=== PATIENT | female | born 1985 | race Caucasian/White ===

== ENCOUNTER → 2018-03-27 08:08 | Outpatient (CLI) | payer OTHER, MEDICAID, SELFPAY | PROVIDERS: PCP Emergency Medicine; Visit Provider Orthopaedic Surgery | DX: M65.4 Radial styloid tenosynovitis [de Quervain] (principal); Z01.818 Encounter for other preprocedural examination ==

== ENCOUNTER 2018-07-26 07:49 | Outpatient (CLI) | payer OTHER, MEDICAID, SELFPAY ==
[2018-07-26 08:37] LABS: Hemoglobin A1C 5.6 % (4.5-6.2)
[2018-07-26 10:33] LABS: FREE T4 0.98 ng/dL (0.76-1.46)
[2018-07-26 17:56] LABS: T3, Total 140 ng/dl (97-169)
== END 2018-07-26 08:09 ==
PROVIDERS: PCP Emergency Medicine; Visit Provider Emergency Medicine
DX: E03.9 Hypothyroidism, unspecified (principal); R63.5 Abnormal weight gain; E66.9 Obesity, unspecified
CPT/HCPCS: 36415; 82533; 83036; 84439; 84443; 84480

== ENCOUNTER 2019-03-07 18:07 | Outpatient (REF) | payer OTHER, MEDICAID, SELFPAY | END 2019-03-07 18:27 | LOC: LBN 18:07 | PROVIDERS: PCP Emergency Medicine; Visit Provider Emergency Medicine | DX: J02.9 Acute pharyngitis, unspecified (principal) | CPT/HCPCS: 87070 ==

== ENCOUNTER 2019-05-18 15:02 | Outpatient (CLI) | payer OTHER, MEDICAID, SELFPAY ==
[2019-05-18 15:39] LABS: Abs Immature Grans 0.05 k/cumm (0.0-0.09); Absolute Basophil Count 0.03 k/cumm (0.0-0.2); Absolute Eosinophil Count 0.17 k/cumm (0.0-0.7); Absolute Lymphocyte Count 2.22 k/cumm (1.2-3.4); Absolute Monocyte Count 0.56 k/cumm (0.11-0.7); Absolute Neutrophil Count 6.57 k/cumm (1.2-6.7); Basophils % 0.3; Eosinophils % 1.8; HGB 14.7 g/dL (12.0-15.5); Immature Grans % 0.5; Lymphocytes % 23.1; Mean Corp. HGB Concentration 33.4 g/dL (32.0-36.0); Mean Corpuscular Hemoglobin 29.4 pg (27.0-33.0); Mean Platelet Volume 10.9 fL (8.0-11.0); Monocytes % 5.8; Neutrophils % 68.5; Platelet Count 260 x1000/uL (130-400); RBC Distribution Width 13.3 % (11.7-14.6)
[2019-05-18 16:17] LABS: ALT 22 U/L (14-59); AST 18 U/L (15-37); Albumin 3.7 g/dL (3.4-5.0); Alkaline Phosphatase 84 U/L (46-116); Anion Gap 12.1 mmol/L (3-11); BUN 17 mg/dL (7-18); Bilirubin, Total 0.2 mg/dL (0.2-1.0); C-Reactive Protein 0.36 mg/dL (0.0-0.3); CO2 22.9 mmol/L (21.0-32.0); CREATININE 0.87 mg/dL (0.55-1.02); Calcium 8.8 mg/dL (8.5-10.1); Chloride 104 mmol/L (98-107); Glucose 106 mg/dL (70-100); Potassium 4.2 mmol/L (3.5-5.1); Sodium 139 mmol/L (136-145); TSH 0.84 uIU/mL (0.36-3.74); Total Protein 7.4 g/dL (6.4-8.2)
[2019-05-18 16:37] LABS: ESR 10 mm/hr (0-20)
[2019-05-18 16:55] LABS: Vitamin B12 592 pg/mL (193-986)
[2019-05-21 10:16] LABS: Lyme Ab w Rflx to Lyme Confirm Negative
== END 2019-05-18 15:22 ==
PROVIDERS: PCP Emergency Medicine; Visit Provider Emergency Medicine
DX: R51 Headache (principal); E03.9 Hypothyroidism, unspecified; M25.50 Pain in unspecified joint
CPT/HCPCS: 36415; 80053; 85652; 82607; 84443; 85025; 86140; 86618

== ENCOUNTER 2019-05-22 13:12 | Emergency (ER) | payer OTHER, MEDICAID, SELFPAY ==
[2019-05-22 13:21] VITALS: BP 134/81; PULSE 70; RESP 16; TEMP 37; O2SAT 97
[2019-05-22 13:40] VITALS: RESP 17
[2019-05-22 13:45] LABS: Bilirubin Negative (Negative); Blood Negative (Negative); Clarity Clear (Clear); Glucose Negative (Negative); Ketones Negative (Negative); Leukocyte Esterase Trace (Negative); Nitrite Negative (Negative); Urobilinogen 0.2 EU/dL (Up TO 0.2); pH 6.5 (5-8)
[2019-05-22 13:57] LABS: Bacteria Moderate HPF (Negative); Crystals Negative HPF (Negative); Mucus Trace (Negative); RBC Negative (0-2); WBC 0-2 HPF (0-5)
[2019-05-22 13:58] LABS: C & S Indicated? No/Sq. Contamination; Epithelial Cells Many HPF (Negative)
--- NOTE | 2019-05-22 14:08 | ED.GENADUL_ITS ---
Discharge Plan Disposition Patient Disposition: HOME Condition: Improving Discharge Details Chief Complaint: GenMedical Clinical Impression: Headache Primary Care Provider: Billy Watkins ED Provider: Elio Larsen Home Meds and New Rx's Prescriptions: No Action lorazepam 1 mg tablet 1 mg PO QHS PRN (Reason: sleep) Qty: 10 RF: 0 multivitamin [Daily Multi-Vitamin] tablet 1 tab PO DAILY RF: 0 ParaGard T 380A 1 EACH intrauterine device 1 ea Intrauterine ONCE Qty: 1 RF: 0 baclofen 5 mg tablet 5 mg PO TID PRN (Reason: back pain) Qty: 90 RF: 1 acetaminophen [Mapap Extra Strength] 500 MG tablet 1,000 mg PO Q6H PRN PRNRF: 0 Discharge Instructions Instructions: General Headache (ED) Additional Instructions: It is very important that you follow-up with your primary care provider for continued reassessment of your symptoms. You may continue to take ooir-zzs-ajdkmsk ibuprofen as needed for any further headaches just do not take excessively as this will cause rebound headache symptoms. Feel free to return to the emergency department for any new or significant worsening of symptoms otherwise get plenty of rest and stay well-hydrated. Referrals: Billy Watkins, [Primary Care Provider] - 1 week (As needed for reassessment) Discharge Data Discharge Date/Time-TO BE ENTERED AT DEPARTURE: 05/22/19 17:23 Medical Decision Making <JEREMY Wagoner - Last Filed: 05/24/19 16:22> Is a very pleasant 34-year-old woman who presents for episode of dizziness, darkened vision, nausea and confusion which occurred while she was walking in the hallway of the hospital today prior to arrival. Patient reports the episode was very brief and has fully resolved. Patient reports mild baseline fatigue. Patient has had multiple similar episodes over the last month or 2 for which she has followed up with her primary care doctor. Primary care doctor has evaluated patient's lab work which has been unremarkable. They did prescribe anxiety and depression medications which possibly was contributory to her symptoms as she is 18 months however she declined taking the medications when followed up with another primary care doctor in the office who recommended further evaluation prior to beginning medications. Patient does have baseline anxiety. Patient reports she did not pass out today. No recent syncopal episodes reported. Patient does report palpitations during her episode although she is feeling quite anxious during her episode. Patient denies any palpitations, chest pain or difficulty breathing at this time. Patient does plan to pursue a neurologic evaluation with her primary care doctor as the next plan of follow- up. We will recheck patient's baseline labs, , urine testing. Patient's vital signs stable. Neurologic exam intact. Patient's initial EKG shows sinus rhythm with a heart rate of 69. No ischemic changes or ST segment changes noted. Reviewed with my attending Iggy Nugent Patient's labs are reviewed and show no significant abnormality. Patient's testing is negative. Patient's urinalysis shows trace leukocyte est erase with epithelial cells likely contaminated. Patient has no obvious urinary tract symptoms at this time. Patient will be provided IV fluid as well as Toradol. Patient signed out pending recheck after fluids/Toradol. <Elio Larsen NP - Last Filed: 05/28/19 09:37> Patient signed out by Seble LUNA, to me pending reassessment after Toradol and fluids. Patient was reassessed and states improvement of symptoms and that she is feeling well enough to go home. Did discuss with patient possibility of further neurological testing which she stated she is scheduled for an MRI tomorrow. Patient has close follow-up with primary care provider for further investigation of her symptoms. Return precautions were discussed. After discussion of diagnosis and plan of care patient has no further needs, questions, or concerns and states clear understanding to return to the emergency department for any worsening symptoms. HPI <JEREMY Wagoner - Last Filed: 05/24/19 16:22> General Date/Time Provider Initiated Documentation: 05/22/19 13:39 . 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 Patient reports she feels significantly improved after the episode. Patient reports she mild fatigue. Patient has a constellation of symptoms recently which she is been working with her primary care doctor for specifically fatigue, palpitations, paresthesias and tingling, right facial discomfort. Patient has had thyroid testing as well as outpatient lab work which is been unremarkable for any abnormality. Has had Lyme testing recently for fatigue. Patient is 18 months post . Patient does report occasional shortness of breath and fatigue. Patient reports multiple episodes of dizziness during which she does become nauseous. Patient reports she was seen by primary care doctor for similar co mplaints and was provided antidepressant and sleep aid however she is not taking either of these medications while pending evaluation. After patient became dizzy during where she called her PCP recommended emergency room evaluation. Patient is a significant history of anxiety and is unsure if the symptoms are related to anxiey Related Data Home Medications Medication Instructions Recorded Confirmed acetaminophen [Mapap Extra 1,000 mg PO Q6H PRN PRN tab 11/25/17 05/09/19 Strength] copper [Paragard T 380-A] 1 ea INTRAUTERINE ONCE #1 implant 01/11/18 05/22/19 multivitamin 1 tab PO DAILY 01/26/19 05/22/19 baclofen 5 mg tablet 5 mg PO TID PRN #90 tab 03/28/19 05/22/19 lorazepam 1 mg tablet 1 mg PO QHS PRN #10 tab 05/09/19 05/22/19 Previous Rx's Medication Instructions Recorded acetaminophen [Mapap Extra 1,000 mg PO Q6H PRN PRN tab 11/25/17 Strength] copper [Paragard T 380-A] 1 ea INTRAUTERINE ONCE #1 implant 01/11/18 baclofen 5 mg tablet 5 mg PO TID PRN #90 tab 03/28/19 lorazepam 1 mg tablet 1 mg PO QHS PRN #10 tab 05/09/19 Allergies Allergy/AdvReac Type Severity Reaction Status Date / Time Penicillins Allergy Severe Verified 05/18/19 14:28 gluten Allergy Intermediate Hives, Verified 05/18/19 14:28 Bloated latex Allergy Intermediate SKIN RASH Verified 05/18/19 14:28 prednisone AdvReac Intermediate palpitation Verified 05/18/19 14:28 s Sulfa (Sulfonamide AdvReac Intermediate SWOLLEN Verified 05/18/19 14:28 Antibiotics) JOINTS sertraline AdvReac Mild GETS HYPER Verified 05/18/19 14:28 dairy Allergy Intermediate Hives, GI Uncoded 05/09/19 15:19 General Stated Complaint: GenMedical ARANZA: 3 Review of Systems <JEREMY Wagoner - Last Filed: 05/24/19 16:22> Review of Systems ROS Unobtainable: All systems reviewed & are unremarkable except as noted in HPI and below Constitutional Constitutional: Reports fatigue, Denies fever(s) and Reports headache(s) ENT Ears, Nose, Mouth, and Throat: Reports dizziness, Reports dry mouth, Reports facial pain, Reports headache(s), Denies tinnitus, Denies sinus pain, Denies sinus pressure, Denies sore throat and Denies throat swelling Cardiovascular Cardiovascular: Denies chest pain with activity, Reports diaphoresis, Denies dyspnea and Reports dyspnea on exertion Respiratory Respiratory: Denies dyspnea and Reports dyspnea on exertion Gastrointestinal Gastrointestinal: Denies diarrhea, Reports nausea and Denies vomiting Neurologic Neurologic: Reports confusion, Reports dizziness and Reports headache(s) Psychiatric Psychiatric: Reports confusion Endocrine Endocrine: Reports fatigue Allergic/Immunologic Allergic/Immunologic: Denies throat swelling PFSH <JEREMY Wagoner - Last Filed: 05/24/19 16:22> Medical History (Updated 11/02/18 @ 09:46 by Michelle Joseph NP) IUD surveillance (Acute) Social History Smoking/Tobacco Use Status: Former Tobacco Use Drug use: Never History History 2 Para 1 Hx # Term Pregnancies Multiple births Hx # Pregnancies Ectopic pregnancies AB induced Hx Number of Living Children AB spontaneous Exam <JEREMY Wagoner - Last Filed: 05/24/19 16:22> Narrative Exam Narrative: CONST: Healthy appearing patient, in no acute distress. Dry mucous membranes. Alert and alert. HENMT: Head nomocephalic, normal to inspection. Atraumatic. Hearing grossly normal. EYES: General normal appearance. Alignment normal. Eyelids normal. Conjunctiva normal. NECK: Normal visual inspection. FROM. Trachea midline. No Midline tenderness. CHEST: Normal insepection of the chest. RESP: Normal respiratory effort. Speaking full sentences. No cough. No audible wheezing. No retractions. CARDIO: No JVD. No murmurs or rubs. Abdomen; abdomen is soft, nontender, bowel sounds present all 4 quadrants. No peritoneal signs, rebound or guarding. MUSCULOSKELETAL: Normal Gait. FROM of all extremities. SKIN: Normal. Dry. No rashes. NEURO: Alert and awake. Speech clear. Alert and oriented x 3. Speech is clear. Cranial nerves intact as tested III - XI. Normal Elarmz-so-ylfp test. No pronator drift. Normal heel-villatoro test. No Nystagmus. Gait normal. Strength intact in all extremities. Sensation intact in all extremities. PSYCH: Normal affect. Cooperative. Course <JEREMY Wagoner - Last Filed: 05/24/19 16:22> Vital Signs Vital signs: Vital Signs Temperature 37.0 C 05/22/19 13:21 Pulse 70 05/22/19 13:21 Respiratory Rate 16 05/22/19 13:21 Blood Pressure 134/81 05/22/19 13:21 Pulse Oximetry 97 05/22/19 13:21 Temperature 37.0 C 05/22/19 13:21 Temperature Source Temporal Artery Scan 05/22/19 13:21 Pulse 70 05/22/19 13:21 Respiratory Rate 17 05/22/19 13:40 Respiratory Effort Non-Labored 05/22/19 13:40 Respiratory Depth Normal 05/22/19 13:40 Respiratory Pattern Normal 05/22/19 13:40 Blood Pressure 134/81 05/22/19 13:21 Blood Pressure Position Supine 05/22/19 13:21 Pulse Oximetry 97 05/22/19 13:21 Oxygen Delivery Method Room Air 05/22/19 13:21 Oxygen Flow Rate 0 05/22/19 13:21 Pain Level 0 05/22/19 13:21 Lab/Test Results Lab/Test Results: Laboratory Tests Range/Units 05/22/19 13:34 Urine Color (Yellow) Yellow Urine Clarity (Clear) Clear Urine pH (5-8) 6.5 Ur Specific [place] (1.005-1.025) 1.010 Urine Protein (Negative) mg/dL Trace H Urine Ketones (Negative) mg/dL Negative Urine Blood (Negative) Negative Urine Nitrite (Negative) Negative Urine Bilirubin (Negative) Negative Urine Urobilinogen (Up TO 0.2) EU/dL 0.2 Ur Leukocyte Esterase (Negative) Trace H Urine RBC (0-2) Negative Urine WBC (0-5) HPF 0-2 Ur Epithelial Cells (Negative) HPF Many Urine Crystals (Negative) HPF Negative Urine Bacteria (Negative) HPF Moderate Urine Mucus (Negative) Trace Ur Culture Indicated? No/sq. contamination Urine Glucose (Negative) mg/dL Negative POC- Test(urine) Negative Sign Out <JEREMY Wagoner - Last Filed: 05/24/19 16:22> Sign Out Data: Sign Out Comment: Signed out pending IV fluid and Toradol administration and reevaluation for improvement. Disposition plan currently follow-up with PCP as outpatient for continued evaluation for her complaints Last updated by Fernanda Marques PA at 05/22/19 16:22
[2019-05-22 14:13] VITALS: BP 124/84; BP 128/73; BP 138/74; PULSE 72; PULSE 75; PULSE 77
[2019-05-22] MEDS: Normal Saline 1,000 ML 1000 ML IV (14:32)
[2019-05-22 14:39] LABS: Abs Immature Grans 0.03 k/cumm (0.0-0.09); Absolute Basophil Count 0.04 k/cumm (0.0-0.2); Absolute Eosinophil Count 0.07 k/cumm (0.0-0.7); Absolute Lymphocyte Count 1.81 k/cumm (1.2-3.4); Absolute Monocyte Count 0.65 k/cumm (0.11-0.7); Absolute Neutrophil Count 6.26 k/cumm (1.2-6.7); Basophils % 0.5; Eosinophils % 0.8; HCT 44.3 % (36.0-46.0); HGB 14.8 g/dL (12.0-15.5); Immature Grans % 0.3; Lymphocytes % 20.4; Mean Corp. HGB Concentration 33.4 g/dL (32.0-36.0); Mean Corpuscular Hemoglobin 29.4 pg (27.0-33.0); Mean Corpuscular Volume 87.9 fL (80-95); Mean Platelet Volume 11.2 fL (8.0-11.0); Monocytes % 7.3; Neutrophils % 70.7; Platelet Count 240 x1000/uL (130-400); RBC 5.04 m/cumm (4.00-5.20); RBC Distribution Width 13.3 % (11.7-14.6); White Blood Cell Count 8.86 k/cumm (4.4-10.8)
[2019-05-22 15:01] LABS: ALT 18 U/L (14-59); AST 22 U/L (15-37); Albumin 3.8 g/dL (3.4-5.0); Alkaline Phosphatase 79 U/L (46-116); Anion Gap 9.7 mmol/L (3-11); BUN 14 mg/dL (7-18); Bilirubin, Total 0.3 mg/dL (0.2-1.0); CO2 26.3 mmol/L (21.0-32.0); CREATININE 0.88 mg/dL (0.55-1.02); Calcium 8.8 mg/dL (8.5-10.1); Chloride 104 mmol/L (98-107); Glucose 94 mg/dL (70-100); Potassium 4.2 mmol/L (3.5-5.1); Sodium 140 mmol/L (136-145); Total Protein 7.8 g/dL (6.4-8.2)
[2019-05-22] MEDS: Ketorolac 15 MG/ML VIAL IVP (16:21)
== END 2019-05-22 17:23 | disposition home or self-care (01) ==
PROVIDERS: Physician Assistant; Emergency Provider Nurse Practitioner Family; PCP Emergency Medicine
DX: R51 Headache (principal)
CPT/HCPCS: 36416; 80053; 81025; 82962; 93005; 96361; 96374; 99284; 81003; 81015; 84703; 85025; 93010; J1885

== ENCOUNTER 2019-05-23 01:30 | Outpatient (CLI) | payer OTHER, MEDICAID, SELFPAY ==
--- NOTE | 2019-05-23 13:57 | DI.MRI_ITS ---
EXAM: MR BRAIN WO CLINICAL HISTORY: headache and right facial pain R51. TECHNIQUE: Multiplanar multisequence MRI was performed. COMPARISON: No exams were available for comparison FINDINGS: No intracranial hemorrhage, mass or infarct is seen. The ventricles are normal in size. There are no abnormal high signal lesions in the white matter. The orbits, sinuses and mastoid air cells unre markable. There are no areas of restricted diffusion. the vascular flow voids appear intact. IMPRESSION: Negative MRI of the brain.
--- NOTE | 2019-05-23 15:37 | DI.VRAD_ITS ---
PROCEDURE INFORMATION: Exam: MR Head Without Contrast Exam date and time: 05/23/2019 2:33 PM Clinical history: 34 years old, female; Headache not specified; Patient HX: Headache and right facial pain. TECHNIQUE: Imaging protocol: MR of the head without contrast. COMPARISON: No relevant prior studies available. FINDINGS: Brain: Normal. No acute infarct. No hemorrhage. No significant white matter disease. No edema. Ventricles: Normal. No ventriculomegaly. Bones/joints: Unremarkable. Soft tissues: Unremarkable. Sinuses: Normal as visualized. No acute sinusitis. Mastoid air cells: Normal as visualized. No mastoid effusion. Orbits: Unremarkable. IMPRESSION: No acute findings. Dictated and Authenticated by: Ari Jordan MD. Ordering:VINAY Cervantes MD
== END 2019-05-23 01:50 ==
PROVIDERS: PCP Emergency Medicine; Visit Provider Emergency Medicine
DX: R51 Headache (principal); G50.1 Atypical facial pain
CPT/HCPCS: 70551

== ENCOUNTER 2019-08-29 15:41 | Outpatient (REF) | payer OTHER, MEDICAID, SELFPAY | END 2019-08-29 16:01 | LOC: LBN 15:41 | PROVIDERS: PCP Emergency Medicine; Visit Provider Nurse Practitioner Gerontology | DX: R50.9 Fever, unspecified (principal) | CPT/HCPCS: 87449 ==

== ENCOUNTER 2019-09-17 11:54 | Outpatient (CLI) | payer OTHER, MEDICAID, SELFPAY ==
--- NOTE | 2019-09-17 10:36 | DI.RAD_ITS ---
EXAM: XR TOE RT GREAT INDICATION: R toe pain. COMPARISON: No exams were available for comparison TECHNIQUE: 2D digital imaging was performed. FINDINGS: The sesamoids are not well seen on the lateral view. The articulation of the sesamoids and the head of the 1st metatarsal appear unremarkable. The soft tissues are unremarkable.
== END 2019-09-17 12:14 ==
PROVIDERS: PCP Emergency Medicine; Visit Provider Physician Assistant
DX: M79.674 Pain in right toe(s) (principal)
CPT/HCPCS: 73660

== ENCOUNTER 2019-09-26 01:08 | Outpatient (CLI) | payer OTHER, MEDICAID, SELFPAY ==
--- NOTE | 2019-09-26 10:45 | DI.MRI_ITS ---
EXAM: MR LOWER EXTREMITY RT WO CLINICAL HISTORY: R foot pain M25.80 JOINT DISORDERS. TECHNIQUE: Multiplanar multisequence MRI was performed. COMPARISON: RIGHT GREAT TOE from 01/04/2018 XR TOE RT GREAT from 09/17/2019 FINDINGS: There is high signal within the marrow of the medial sesamoid. The lateral sesamoid shows normal sig nal. There is normal signal in the 1st metatarsal head. The tendons appear intact. There is a smal l amount of surrounding fluid and fluid at the 1st MTP joint. IMPRESSION: High signal and small amount of surrounding fluid at the medial sesamoid.
== END 2019-09-26 01:28 ==
PROVIDERS: PCP Emergency Medicine; Visit Provider Physician Assistant
DX: M79.671 Pain in right foot (principal); M89.8X7 Other specified disorders of bone, ankle and foot
CPT/HCPCS: 73718

== ENCOUNTER 2019-12-10 14:08 | Outpatient (REF) | payer OTHER, MEDICAID, SELFPAY | END 2019-12-10 14:28 | LOC: LBN 14:08 | PROVIDERS: PCP Emergency Medicine; Visit Provider Nurse Practitioner Gerontology | DX: N39.0 Urinary tract infection, site not specified (principal) | CPT/HCPCS: 87086 ==

== ENCOUNTER 2020-02-07 01:44 | Outpatient (CLI) | payer OTHER, MEDICAID, SELFPAY ==
--- NOTE | 2020-02-07 07:45 | DI.MAMMO_ITS ---
EXAM: MG MAMMO DIAGNOSTIC BI CLINICAL HISTORY: MASTYODYNIA, N64.4, BREAST PAIN TECHNIQUE: Mammograms were interpreted according to the usual protocol including computer analysis w Bedloo system, tomosynthesis and C-view imaging. COMPARISON: FINDINGS: The breasts are moderate density with fairly symmetrical distribution of fibroglandular tissue. No d ominant mass or clumped microcalcification is identified in either breast. The current examination i s a baseline examination. IMPRESSION: No specific evidence of malignancy at this time. I would suggest that routine screening examinations of begin at age 40 unless there is breast symptomatology in the interval. BI-RADS Category 1 - Negative Breast Density - Category B - Scattered areas of fibroglandular density
== END 2020-02-07 02:04 ==
PROVIDERS: PCP Emergency Medicine; Visit Provider Advanced Practice Midwife
DX: N64.4 Mastodynia (principal)
CPT/HCPCS: 77062; 77066; G0279

== ENCOUNTER 2020-04-14 07:38 | Outpatient (CLI) | payer OTHER, MEDICAID, SELFPAY ==
--- NOTE | 2020-04-14 14:29 | DI.RAD_ITS ---
EXAM: XR CHEST 2V PA LATERAL CLINICAL HISTORY: cough, SOB, r/o pneumonia, J98.01 ACUTE BRONCHOSPASM TECHNIQUE: 2D digital imaging was performed. COMPARISON: CR CHEST 2 VIEWS PA,LAT from 04/14/2012 FINDINGS: MEDIASTINUM: Normal. HEART: Normal. PULMONARY VASCULATURE: Normal. LUNGS: Clear. PLEURAL SPACE: No pleural effusion or pneumothorax. BONE:Within normal limits for the patient's age. OTHER FINDINGS:Normal. IMPRESSION: No acute pulmonary findings. DATA REPOSITORY: RADIATION DOSE DELIVERED:
== END 2020-04-14 07:58 ==
PROVIDERS: PCP Emergency Medicine; Visit Provider Physician Assistant
DX: R05 Cough (principal); J98.01 Acute bronchospasm; R06.02 Shortness of breath
CPT/HCPCS: 71046

== ENCOUNTER 2020-04-14 14:07 | Outpatient (CLI) | payer OTHER, MEDICAID, SELFPAY ==
[2020-04-17 13:37] LABS: Method Summary See Comments; Patient Race White; SARS-CoV-2 RNA Undetected (Undetected); SARS-CoV-2 Specimen Source Nasal
== END 2020-04-14 14:27 ==
PROVIDERS: PCP Emergency Medicine; Visit Provider Physician Assistant
DX: R05 Cough (principal)
CPT/HCPCS: U0003

== ENCOUNTER 2020-09-26 02:33 | Outpatient (CLI) | payer OTHER, MEDICAID, SELFPAY ==
[2020-09-26 16:17] LABS: Abs Immature Grans 0.04 10^3/uL (0.0-0.06); Absolute Basophil Count 0.06 10^3/uL (0.0-0.2); Absolute Eosinophil Count 0.16 10^3/uL (0.0-0.7); Absolute Lymphocyte Count 2.38 10^3/uL (1.2-3.4); Absolute Monocyte Count 0.65 10^3/uL (0.1-0.8); Absolute Neutrophil Count 6.42 10^3/uL (1.2-6.7); Basophils % 0.6; Eosinophils % 1.6; HCT 42.4 % (36.0-46.0); HGB 14.4 g/dL (11.2-15.7); Immature Grans % 0.4; Lymphocytes % 24.5; MCH 30.4 pg (27.0-33.0); MCV 89.6 fL (80-95); MPV 11.5 fL (8.0-11.0); Monocytes % 6.7; Neutrophils % 66.2; Nucleated RBC 0 %; Platelet Count 231 10^3/uL (130-400); RBC 4.73 10^6/uL (3.93-5.22); RDW 11.9 % (11.7-14.6); RDW-SD 38.9 fL; WBC 9.71 10^3/uL (4.4-10.8)
[2020-09-26 17:36] LABS: ALT 23 U/L (14-59); AST 19 U/L (15-37); Albumin 3.7 g/dL (3.4-5.0); Alkaline Phosphatase 90 U/L (46-116); Anion Gap 10.6 mmol/L (3-11); BUN 14 mg/dL (7-18); Bilirubin, Total 0.2 mg/dL (0.2-1.0); CO2 23.4 mmol/L (21.0-32.0); CREATININE 0.9 mg/dL (0.55-1.02); Calcium 8.8 mg/dL (8.5-10.1); Chloride 103 mmol/L (98-107); Glucose 118 mg/dL (74-106); Potassium 4.1 mmol/L (3.5-5.1); Sodium 137 mmol/L (136-145); TSH 0.67 uIU/mL (0.36-3.74); Total Protein 6.9 g/dL (6.4-8.2)
[2020-09-27 02:13] LABS: ESR 9 mm/hr (<or=20)
[2020-09-29 05:07] LABS: Vitamin D 25 Total 39.7 ng/ml (30-100)
[2020-09-29 12:32] LABS: Lyme Ab w Rflx to Lyme Confirm Negative (Negative)
== END 2020-09-26 02:34 | disposition home or self-care (01) ==
LOC: LBO 02:33
PROVIDERS: PCP Emergency Medicine; Visit Provider Nurse Practitioner Adult Health
DX: E03.9 Hypothyroidism, unspecified (principal); R20.2 Paresthesia of skin; G50.1 Atypical facial pain; M25.59 Pain in other specified joint
CPT/HCPCS: 36415; 80053; 82306; 85652; 84443; 85025; 86140; 86618

== ENCOUNTER 2020-10-23 01:25 | Outpatient (CLI) | payer OTHER, MEDICAID, SELFPAY ==
--- NOTE | 2020-10-23 | DI.CT_ITS ---
EXAM: CT SINUS WO CLINICAL HISTORY: FACIAL PAIN, R51.9,PRESSURE, R51.9. Evaluate for sinusitis. TECHNIQUE: Imaging Protocol: Axial computed tomography images with coronal and sagittal reformatted images were created and reviewed. COMPARISON: No exams were available for comparison FINDINGS: AXIAL IMAGES: Frontal sinuses: Normally aerated. Ethmoid air cells: Normally aerated. Maxillary sinuses: There is minimal mucosal thickening in the maxillary sinuses bilaterally. No air- fluid levels are seen. Sphenoid sinus: Normally aerated. Ostiomeatal complexes: Patent. Osseous nasal septum: Mild deviation to the right. Visualized regional soft tissues: No acute findings. Orbits: Unremarkable. Bones: Unremarkable. Mastoid Air Cells: Normally aerated. IMPRESSION: Minimal mucosal thickening in the maxillary sinuses bilaterally. The remaining visualized paranasal sinuses are clear. No air-fluid levels. RADIATION DOSE DELIVERED: 134.91mGy.cm Total DLP DATA REPOSITORY: All CT scans at this facility are submitted to the National Radiology Data Registry (NRDR) Dose Index Registry (DIR) with the [employer] (ACR). RADIATION OPTIMIZATION: All CT scans at this facility use at least one of these dose optimization te chniques: automated exposure control; mA and/or kV adjustment per patient size (includes targeted exa ms where dose is matched to clinical indication); or iterative reconstruction.
== END 2020-10-23 01:45 ==
PROVIDERS: PCP Emergency Medicine; Visit Provider Otolaryngology Otolaryngology/Facial Plastic Surgery
DX: R51.9 Headache, unspecified (principal)
CPT/HCPCS: 70486

== ENCOUNTER 2020-12-19 04:16 | Outpatient (CLI) | payer OTHER, MEDICAID, SELFPAY ==
--- NOTE | 2020-12-19 06:45 | DI.MRI_ITS ---
Exam(s) MR THORACIC SPINE WO EXAM: MR THORACIC SPINE WO CLINICAL HISTORY: Failed therapy,BACK PAIN,M54.5. TECHNIQUE: Multiplanar multisequence MRI of the Thoracic spine was performed. COMPARISON: No exams were available for comparison FINDINGS: Bones: The vertebral body heights are well maintained. Alignment is satisfactory. Mild degenerative e ndplate signal changes are present throughout the thoracic spine. Cord: The thoracic cord is normal size and signal intensity. No intrinsic cord lesion is present. Discs: No disc herniation or bulge is present. No central spinal canal or neural foraminal stenosis i s seen in the thoracic spine. Soft tissues: Normal. IMPRESSION: 1. Mild degenerative changes in the thoracic spine. 2. No focal disc herniation, central spinal canal or neural foraminal stenosis is seen in the thoraci c spine. DATA REPOSITORY:
--- NOTE | 2020-12-19 06:45 | DI.MRI_ITS ---
Exam(s) MR LUMBAR SPINE WO EXAM: MR LUMBAR SPINE WO CLINICAL HISTORY: Failed therapy,LOW BACK PAIN,M54.5. TECHNIQUE: Multiplanar multisequence MRI of the Lumbar spine was performed. COMPARISON: No exams were available for comparison FINDINGS: Bones: The last intervertebral disc space is designated the L5/S1 level for the numbering purpose of this examination. The vertebral body heights are well maintained. Alignment is satisfactory. There are endplate degenerative signal changes at several levels in the lumbar spine. Cord: The conus tip ends at the T12 level. It is of normal size and signal intensity. L1-2: No disc herniations or bulges are present. No central spinal canal or neural foraminal stenosis . L2-3: No disc herniations or bulges are present. No central spinal canal or neural foraminal stenosis . L3-4: There is a diffuse disc bulge slightly eccentric to the left. This does cause mild narrowing o f the central spinal canal. No neural foraminal stenosis. L4-5: There is a mild diffuse disc bulge. No significant central spinal canal stenosis. No neural f oraminal stenosis. L5-S1: There is a diffuse disc bulge. No significant central spinal canal stenosis. No neural mckenzie inal stenosis. Soft tissues: The visualized SI joints and sacrum are well maintained. The paraspinal soft tissues ar e unremarkable. IMPRESSION: Multilevel degenerative disc disease with mild narrowing of the central spinal canal at L3-L4. DATA REPOSITORY:
== END 2020-12-19 04:36 ==
PROVIDERS: PCP Emergency Medicine; Visit Provider Nurse Practitioner Family
DX: M54.6 Pain in thoracic spine (principal); M54.5 Low back pain; M51.37 Other intervertebral disc degeneration, lumbosacral region; M51.34 Other intervertebral disc degeneration, thoracic region
CPT/HCPCS: 72146; 72148

== ENCOUNTER 2020-12-23 12:07 | Outpatient (REF) | payer OTHER, MEDICAID, SELFPAY ==
--- NOTE | 2020-12-23 11:00 | PAPFT_PTH ---
PATIENT: Ladonna Lyons LOC: [facility] U#:[id number] AGE/SX: 35/F ROOM: RE12/23/[address]: AFUA Kaufman : 1985 BED: DIS: 12/23/2020 SPEC #: [id number] RECD: 12/23/20 12:40 STATUS: GERARDOTray REQ #: [id number] RACHELE: 12/23/20 11:[address]: Michelle Joseph DEPT: [facility] Cytology RECD BY: Rosa Mock ENTERED: 12/23/20 12:42 SP TYPE: PAPFT OTHR DR: Blily Watkins, DO Tissues: 1 - CX/ENDOCX FOR PAP SMEARS Procedures: PAP THIN PREP/UVM Screening HPV DNA PROBE Comments: [id number]
== END 2020-12-23 12:08 | disposition home or self-care (01) ==
LOC: LBN 12:07
PROVIDERS: PCP Emergency Medicine; Visit Provider Nurse Practitioner Family
DX: Z12.4 Encounter for screening for malignant neoplasm of cervix (principal); Z11.51 Encounter for screening for human papillomavirus (HPV)
CPT/HCPCS: 88142; 87624

== ENCOUNTER 2020-12-24 13:21 | Outpatient (REF) | payer OTHER, MEDICAID, SELFPAY | END 2020-12-24 13:22 | disposition home or self-care (01) | LOC: LBN 13:21 | PROVIDERS: PCP Emergency Medicine; Visit Provider Nurse Practitioner Gerontology | DX: N39.0 Urinary tract infection, site not specified (principal) | CPT/HCPCS: 87086 ==

== ENCOUNTER 2021-01-30 03:11 | Outpatient (CLI) | payer OTHER, MEDICAID, SELFPAY ==
[2021-01-30 17:41] LABS: C-Reactive Protein 0.36 mg/dL (0.0-0.3)
[2021-02-01 16:24] LABS: Rheumatoid Factor <8.6 IU/mL (<12.0)
[2021-02-02 12:50] LABS: ANA Interpretation Positive (Negative); ANA Titer Pattern 1:80 Speckled
== END 2021-01-30 03:12 | disposition home or self-care (01) ==
LOC: LBO 03:11
PROVIDERS: PCP Emergency Medicine; Visit Provider Otolaryngology Otolaryngology/Facial Plastic Surgery
DX: R51.9 Headache, unspecified (principal); G89.29 Other chronic pain; G50.1 Atypical facial pain
CPT/HCPCS: 36415; 86038; 86140; 86431

== ENCOUNTER 2021-06-27 19:13 | Outpatient (REF) | payer OTHER, MEDICAID, SELFPAY | END 2021-06-27 19:14 | disposition home or self-care (01) | LOC: NCHCN 19:13 | PROVIDERS: PCP Emergency Medicine; Visit Provider Nurse Practitioner Family | DX: J02.9 Acute pharyngitis, unspecified (principal) | CPT/HCPCS: 87070 ==

== ENCOUNTER 2021-11-18 13:56 | Outpatient (REF) | payer OTHER, MEDICAID, SELFPAY ==
[2021-11-19 16:26] LABS: COVID-19 RT-PCR UVMMC Result Negative (Negative)
== END 2021-11-18 13:57 | disposition home or self-care (01) ==
LOC: LBN 13:56
PROVIDERS: PCP Family Medicine; Visit Provider Obstetrics & Gynecology
DX: Z20.822 Contact with and (suspected) exposure to COVID-19 (principal)
CPT/HCPCS: U0003

== ENCOUNTER 2022-05-06 10:16 | Outpatient (CLI) | payer OTHER, MEDICAID, SELFPAY ==
--- NOTE | 2022-05-06 06:00 | DI.RAD_ITS ---
Exam(s) XR PAIN CLINIC SACRIOILIAC 2V EXAM: XR PAIN CLINIC SACRIOILIAC 2V CLINICAL HISTORY: DX: sacroiliac joint dysfunction. TECHNIQUE: Fluoroscopy was provided for the referring physician for guidance with performing pain cl inic injection procedure. COMPARISON: No exams were available for comparison FINDINGS: Please see procedure note for details. Fluoro time: 33.5 second RADIATION DOSE DELIVERED: Ka,r= 13.93 mGy
[2022-05-06 10:21] VITALS: BP 135/87; PULSE 67; RESP 18; TEMP 36.5; O2SAT 98
--- NOTE | 2022-05-06 10:56 | PDOC.PAIN_ITS ---
Pain Clinic Procedure Note Procedure Note Procedure Note: INTRA-ARTICULAR SI JOINT INJECTION #1 Ladonna Lyons has been referred to the [facility] for intra- articular SI joint injection. COMMENTS: She was previously evaluated in the office. Her pre-procedure pain VAS was 5/10. Dx: Sacroiliac joint dysfunction Patient was interviewed and the medical record reviewed. There were no medical, pharmacologic, radiographic or other structural contraindications to attempting fluoroscopically guided intra-articular SI joint injection. Risks and expected side effects as well as potential benefit of the procedure were reviewed and voiced concerns addressed. The printed consent form was signed and witnessed. Standard time-out procedure was performed. Patient was placed in the prone position on the fluoroscopy table and automated blood pressure cuff and pulse oximeter applied. The skin entry point for approaching the bilateral SI joints was identified under the most advantageous fluoroscopic view and marked. Following thorough Chlorhexadine preparation of the skin and draping and 1% lidocaine infiltration of the skin entry point and subcutaneous tissues, a 22 gauge 3.5 spinal needle was placed under fluoroscopic guidance into the bilateral SI joints was identified under the most advantageous fluoroscopic view and marked. Intra-articular placement was confirmed by a clear arthrogram resulting from the injection of 0.25ml Omnipaque 240, 1ml 1% lidocaine, and 40mg Depomedrol were injected into each joint intra- articularily with an initial reproduction of a significant component of the usual pain. Each needle was flushed with 1 cc of 1% Lidocaine and the needles were removed. Vital signs were stable throughout the procedure and were as recorded in the docflowsheet by the nursing staff. If given, dosages of intravenous drugs for anxiolysis and analgesia were documented in MAR. Follow up plans and appointments were discussed with the patient. Post procedure instruction was given as documented in nursing documentation and having met discharge criteria, and was discharged from the [facility]. COMMENTS: Post-procedure pain VAS was 0/10. rAi Banda DO, MPH [facility]Pain Management [facility] CC: Zack Herrmann NP
[2022-05-06 11:05] VITALS: BP 151/86; PULSE 76; RESP 16; O2SAT 100
[2022-05-06] MEDS: methylPREDNISolone ACETATE 80 MG/ML VIAL IJ (11:07)
[2022-05-06] MEDS: Omnipaque 240 MG/ML 50 ML BTL IJ (11:08)
== END 2022-05-06 10:17 | disposition home or self-care (01) ==
LOC: PC 10:16
PROVIDERS: PCP Nurse Practitioner Family; Visit Provider Preventive Medicine Occupational Medicine
DX: M53.3 Sacrococcygeal disorders, not elsewhere classified (principal)
CPT/HCPCS: 27096; 72200; J1040; Q9967

== ENCOUNTER 2022-06-21 08:57 | Emergency (ER) | payer OTHER, MEDICAID, SELFPAY ==
[2022-06-21 09:16] VITALS: BP 125/88; PULSE 86; RESP 18; TEMP 36.2; O2SAT 96
--- NOTE | 2022-06-21 10:30 | DI.RAD_ITS ---
Exam(s) XR PORTABLE CHEST AP EXAM: XR PORTABLE CHEST AP CLINICAL HISTORY: cough. TECHNIQUE: 2D digital imaging was performed. COMPARISON: CR XR CHEST 2V PA LATERAL from 04/14/2020 FINDINGS: Single AP portable view. Heart size is upper normal. The mediastinum is not widened. Lungs are clear. No infiltrates nor obvious pleural effusions. IMPRESSION: No acute pulmonary findings on this single AP portable view of the chest. DATA REPOSITORY: RADIATION DOSE DELIVERED:
[2022-06-21 11:22] LABS: COVID-19 PCR Negative (Negative); Influenza A PCR Negative (Negative); Influenza B PCR Negative (Negative); RSV PCR Negative (Negative)
[2022-06-21 11:30] VITALS: RESP 18; RESP 4; O2SAT 96
[2022-06-21] MEDS: Albuterol/Ipratropium 3 ML UPD VIAL UPD (11:30)
[2022-06-21 11:31] LABS: Source Nasopharynx
[2022-06-21] MEDS: Azithromycin 250 MG TAB 500 MG PO (14:16)
--- NOTE | 2022-06-21 17:13 | ED.GENADUL_ITS ---
Discharge Plan Disposition Patient Disposition: HOME Condition: Stable Discharge Details Chief Complaint: RespSymp Clinical Impression: Cough Primary Care Provider: Zack Herrmann ED Provider: Julieth Nugent Home Meds and New Rx's Prescriptions: Continued fluticasone propionate 44 mcg/actuation HFA aerosol inhaler 2 puff inhalation BID Rx Instructions: administer with spacer lidocaine 5 % adhesive patch,medicated 1 patch topical DAILY PRN (Reason: back pain) Qty: 30 3RF multivitamin [Daily Multi-Vitamin] tablet 1 tab PO DAILY magnesium oxide 400 mg magnesium tablet 400 mg PO DAILY Qty: 90 3RF albuterol sulfate 90 mcg/actuation HFA aerosol inhaler 2 puff IH 6XD PRN (Reason: shortness of breath or wheezing) Qty: 18 0RF albuterol sulfate 2.5 mg /3 mL (0.083 %) solution for nebulization 2.5 mg IH Q6H Qty: 90 0RF Flonase Sensimist 27.5 mcg/actuation spray,suspension 2 spray intranasal DAILY Qty: 9.1 0RF Rx Instructions: into each nostril sertraline 50 mg tablet 50 mg PO DAILY Qty: 90 3RF ParaGard T 380A 1 EACH intrauterine device 1 ea Intrauterine ONCE Qty: 1 0RF dextroamphetamine-amphetamine [Adderall] 10 mg tablet 10 mg PO BID MDD 20mg Qty: 56 0RF Rx Instructions: administer doses at least 4-6 hours apart semaglutide 0.25 mg or 0.5 mg(2 mg/1.5 mL) pen injector 0.5 mg subcut QWEEK Qty: 1.5 0RF Rx Instructions: for 4 doses Discharge Instructions Instructions: Acute Cough (ED) Additional Instructions: Please return immediately to the emergency department if you develop any new or worsening symptoms, if your condition does not improve as expected, or if you become otherwise concerned. It is extremely important that you call soon as possible to make an appointment to be seen in follow-up for this visit by your primary care doctor. Referrals: Zack Herrmann, PREPARATION OPERATOR [Primary Care Provider] - Discharge Data Discharge Date/Time-TO BE ENTERED AT DEPARTURE: 06/21/22 14:24 Medical Decision Making Concern for URI, viral pneumonia, bacterial pneumonia, possible reactive airway disease component, other. Exam/history at this time is not consistent with acute coronary syndrome, pulmonary embolism, sepsis. Plan for DuoNeb, chest x- ray, COVID/flu/RSV swab. Chest x-ray negative. Patient reports feeling essentially unchanged after DuoNeb. Given time course, reported fevers plan to treat for occult pneumonia with azithromycin, plan for outpatient follow-up. I had a discussion with Patient regarding return to emergency department precautions, home care, and importance of outpatient follow-up. Pt verbalizes understanding of the plan and is amenable. Patient discharged to home with clear plan for outpatient follow- up. All questions were answered. Disposition decision was made weighing the risks and benefits of hospitalization versus outpatient treatment, the risk for further decompensation, and the patient's wishes. Medical Records Medical records reviewed: Yes I reviewed the patient's medical records. Imaging Data Radiologic Study: Attestation: I personally reviewed and interpreted this imaging study as follows: Radiologist's impression: EXAM:? XR PORTABLE CHEST AP CLINICAL HISTORY: ? cough. ? TECHNIQUE:? 2D digital imaging was performed. COMPARISON:? CR XR CHEST 2V PA ? LATERAL from 04/14/2020 FINDINGS: Single AP portable view. Heart size is upper normal.? The mediastinum is not widened. Lungs are clear.? No infiltrates nor obvious pleural effusions. IMPRESSION: No acute pulmonary findings on this single AP portable view of the chest. HPI General Mode of arrival: ambulatory . Date/Time Provider Initiated Documentation: 06/21/22 09:27 . Limitations to Documentation: no limitations . Information obtained by: patient, RN notes reviewed and old records reviewed . HPI Narrative: Ladonna Lyons is a 37 y/o woman with history of anxiety, asthma presenting to emergency room with cough. Patient reports that over the past 2 weeks she has had productive cough. She has also had intermittent subjective fevers, fatigue, and general feeling of unwell. She reports that other members of her family have been sick with similar illness. She has had a normal appetite and has been able to go about her usual activities. She denies pain, shortness of breath, vomiting, diarrhea, numbness, weakness, rash. No known environmental exposures. Related Data Home Medications Medication Instructions Recorded Confirmed copper 380 square mm intrauterine 1 ea intrauterine ONCE #1 implant 01/11/18 06/21/22 device (ParaGard T 380A) multivitamin (Daily Multi-Vitamin 1 tab PO DAILY 01/26/19 06/21/22 tablet) magnesium oxide 400 mg PO DAILY #90 tabs 06/01/19 06/21/22 albuterol sulfate 90 mcg/actuation 2 puff inhalation 6XD PRN 08/31/19 06/21/22 aerosol inhaler shortness of breath or wheezing #18 grams albuterol sulfate 2.5 mg/3 mL 2.5 mg (3 mL) inhalation Q6H #90 mL 04/14/20 06/21/22 (0.083 %) solution for nebulization fluticasone furoate 27.5 2 spray intranasal DAILY #9.1 mL 05/20/20 06/21/22 mcg/actuation nasal spray,suspension (Flonase Sensimist) fluticasone propionate 44 2 puff inhalation BID 06/18/20 06/21/22 mcg/actuation HFA aerosol inhaler sertraline 50 mg tablet 50 mg PO DAILY #90 tabs 12/17/21 06/21/22 lidocaine 5 % topical patch 1 patch topical DAILY PRN back 05/19/22 06/21/22 pain #30 ea dextroamphetamine-amphetamine 10 10 mg PO BID #56 tabs 06/15/22 06/21/22 mg tablet (Adderall) semaglutide 0.25 mg or 0.5 mg (2 0.5 mg (0.4 mL) subcut QWEEK #1.5 06/17/22 06/21/22 mg/1.5 mL) subcutaneous pen mL injector Previous Rx's Medication Instructions Recorded copper 380 square mm intrauterine 1 ea intrauterine ONCE #1 implant 01/11/18 device (ParaGard T 380A) magnesium oxide 400 mg PO DAILY #90 tabs 06/01/19 albuterol sulfate 90 mcg/actuation 2 puff inhalation 6XD PRN 08/31/19 aerosol inhaler shortness of breath or wheezing #18 grams albuterol sulfate 2.5 mg/3 mL 2.5 mg (3 mL) inhalation Q6H #90 mL 04/14/20 (0.083 %) solution for nebulization fluticasone furoate 27.5 2 spray intranasal DAILY #9.1 mL 05/20/20 mcg/actuation nasal spray,suspension (Flonase Sensimist) sertraline 50 mg tablet 50 mg PO DAILY #90 tabs 12/17/21 lidocaine 5 % topical patch 1 patch topical DAILY PRN back 05/19/22 pain #30 ea dextroamphetamine-amphetamine 10 10 mg PO BID #56 tabs 06/15/22 mg tablet (Adderall) semaglutide 0.25 mg or 0.5 mg (2 0.5 mg (0.4 mL) subcut QWEEK #1.5 06/17/22 mg/1.5 mL) subcutaneous pen mL injector Allergies Allergy/AdvReac Type Severity Reaction Status Date / Time Penicillins Allergy Severe Verified 06/21/22 09:19 gluten Allergy Intermediate Hives, Verified 06/21/22 09:19 Bloated latex Allergy Intermediate SKIN RASH Verified 06/21/22 09:19 grass pollen Allergy Verified 06/21/22 09:19 mold Allergy Verified 06/21/22 09:19 prednisone AdvReac Intermediate palpitation Verified 06/21/22 09:19 s Sulfa (Sulfonamide AdvReac Intermediate SWOLLEN Verified 06/21/22 09:19 Antibiotics) JOINTS dairy Allergy Intermediate Hives, GI Uncoded 06/21/22 09:19 General Stated Complaint: RespSymp ARANZA: 3 Review of Systems Narrative: Constitutional: Reports subjective fevers, fatigue Eyes: denies eye pain ENT: denies ear pain, dental pain Cardiovascular: denies chest pain Respiratory: denies SOB, reports cough GI: denies abdominal pain, vomiting, diarrhea : denies flank pain MSK: denies back pain, neck pain, arthralgias, myalgias Skin: denies rash Neuro: denies headaches, numbness, focal weakness PFSH All Active Problems Cough (Acute) IUD surveillance (Acute) Migraine (Chronic) Low back pain (Acute) Sesamoiditis (Chronic) Right great toe fibular sesamoid. Breast pain, left (Acute) GERD (gastroesophageal reflux disease) (Chronic) Allergic rhinitis (Acute) TMJ (temporomandibular joint disorder) (Acute) Depression (Chronic) ADD (attention deficit disorder) (Acute) Insomnia (Acute) Sacroiliac joint dysfunction of both sides (Acute) Obesity (BMI 35.0-39.9 without comorbidity) (Acute) Medical History Anxiety Social History Smoking/Tobacco Use Status: Former Tobacco Use Smoking risk assessment performed?: Yes Alcohol Intake: current Alcohol Intake frequency: a few times a month Drug use: Never Substance use type: does not use Caregiver/Support person: No Household members: spouse and children Housing: house Number of Children: 1 Communication Needs: None Do you need help understanding health information?: Never Pets and animals: Yes Pets and animals: cat(s) and dog(s) Sexually active: Yes Do you think of yourself as: straight/heterosexual Current gender identity: female What is your relationship status?: living with partner How often do you talk on the phone with friends or family?: twice per week How often do you get together with friends or relatives?: never Do you belong to any clubs or organized social groups?: no Panel score (0-1 are the most socially isolated patients): 1 What type of physical activity do you participate in: none Seatbelt use: always Helmet use: Yes Helmet use: always History History 2 Para 1 Hx # Term Pregnancies Multiple births Hx # Pregnancies Ectopic pregnancies AB induced Hx Number of Living Children AB spontaneous Exam Narrative Exam Narrative: Constitutional: well and [id number], pleasant, conversing normally, intermittent cough HENT: head atraumatic/normocephalic/normal inspection, mucous membranes moist Eyes: conjunctiva normal, sclera normal, pupils 3mm b/l Neck: no stridor, normal ROM, trachea midline Chest: normal inspection Resp: normal work of breathing, LCTAB Cardio: normal rate, normal rhythm, no murmur appreciated Back: normal inspection, no rash Skin: warm, dry, normal color, no rash Neuro: alert, not altered, grossly non-focal, normal tone Ext: no edema, moving all extremities equally Psych: normal mood, normal affect, normal behavior Course Vital Signs Vital signs: Vital Signs Temperature 36.2 C L 06/21/22 09:16 Pulse 86 06/21/22 09:16 Respiratory Rate 18 06/21/22 09:16 Blood Pressure 125/88 06/21/22 09:16 Pulse Oximetry 96 06/21/22 09:16 Temperature 36.2 C L 06/21/22 09:16 Temperature Source Temporal Artery Scan 06/21/22 09:16 Pulse 86 06/21/22 09:16 Respiratory Rate 18 06/21/22 11:30 Respiratory Effort Non-Labored 06/21/22 14:13 Blood Pressure 125/88 06/21/22 09:16 Blood Pressure Position Sitting 06/21/22 09:16 Pulse Oximetry 96 06/21/22 11:30 Oxygen Delivery Method Room Air 06/21/22 11:30 Oxygen Flow Rate 0 06/21/22 11:30 Pain Level 0 06/21/22 09:16 Lab/Test Results Lab/Test Results: Laboratory Tests Range/Units 06/21/22 10:28 COVID-19 Source Nasopharynx SARS-CoV-2 (PCR) (Negative) Negative Influenza Type A (PCR) (Negative) Negative Influenza Type B (PCR) (Negative) Negative RSV (PCR) (Negative) Negative
== END 2022-06-21 14:24 | disposition home or self-care (01) ==
PROVIDERS: Emergency Provider Student in an Organized Health Care Education/Training Program; PCP Nurse Practitioner Family
DX: R05.1 Acute cough (principal); R50.9 Fever, unspecified
CPT/HCPCS: 36416; 82962; 87637; 94640; 99283; 71045; J7620

== ENCOUNTER → 2022-07-07 01:14 | Outpatient (CLI) | payer OTHER, MEDICAID, SELFPAY ==
--- NOTE | 2022-07-07 08:20 | DI.MAMMO_ITS ---
Exam(s) MAMMO DIAGNOSTIC BI EXAM: MAMMO DIAGNOSTIC BI CLINICAL HISTORY: LT BREAST PAIN, N64.4 TECHNIQUE: Bilateral full field digital CC and MLO mammographic images were obtained with 3D tomosyn thesis and utilizing computer aided detection (CAD). COMPARISON: Available for comparison. FINDINGS: Masses/Architectural Distortion: None seen. Microcalcifications: No suspicious pleomorphic-type are seen. Skin Thickening/Nipple Retraction: None. IMPRESSION: 1. No significant interval change with no specific features of malignancy noted. 2. Unless there is more urgent need, screening mammography is recommended, as per [place] [employer] guidelines. 3. Findings were discussed with the patient on the date of the examination. BI-RADS Category 1 - Negative Breast Density - Category B - Scattered areas of fibroglandular density Breast density category C or D implies that the patient has dense breast tissue. Dense breast tissue is very common and is not abnormal but dense breast tissue can make it harder to find cancer on a ma mmogram. Also, dense breast tissue may increase their breast cancer risk. This information about the result of the mammogram report was provided to the patient to raise their awareness. Use this report when you speak with the patient about their risks for breast cancer, which includes their family hist ory. At that time, you may recommend for more screening tests (Ultrasound or MRI) as they might be us eful based on their risk. A negative radiographic report should not delay biopsy if a dominant or clinically suspicious mass is present. Up to ten percent of cancers are not identified on mammography. A negative report may reinforce clinical impression. Adenosis and dense breasts may obscure an underlying neoplasm. False positive reports average 6 to 10%. Patient will receive a letter notifying them of these results.
== END ==
PROVIDERS: PCP Nurse Practitioner Family; Visit Provider Nurse Practitioner Family
DX: N64.4 Mastodynia (principal)
CPT/HCPCS: 77062; 77066; G0279

== ENCOUNTER 2022-08-30 15:28 | Outpatient (REF) | payer OTHER, MEDICAID, SELFPAY ==
[2022-08-30 13:58] LABS: Source Nasal/Nares
[2022-08-30 14:44] LABS: COVID-19 PCR Negative (Negative)
== END 2022-08-30 15:29 | disposition home or self-care (01) ==
LOC: LBN 15:28
PROVIDERS: PCP Nurse Practitioner Family; Visit Provider Obstetrics & Gynecology
DX: Z20.822 Contact with and (suspected) exposure to COVID-19 (principal); R50.9 Fever, unspecified
CPT/HCPCS: 87635

== ENCOUNTER 2022-08-31 13:17 | Outpatient (CLI) | payer OTHER, MEDICAID, SELFPAY ==
--- NOTE | 2022-08-31 12:00 | DI.MRI_ITS ---
Exam(s) MR CERVICAL SPINE WO EXAM: MR CERVICAL SPINE WO CLINICAL HISTORY: Evaluate R20.0 PARESTHESIA OF SKIN TECHNIQUE: Multiplanar multisequence MRI of the cervical spine was performed without intravenous con trast. COMPARISON: No exams were available for comparison FINDINGS: CERVICOMEDULLARY JUNCTION: Intact with no evidence of cerebellar tonsillar ectopia. No obvious abnor mality of the odontoid process. No evidence of Chiari 1 malformation. CERVICAL SPINAL CORD: There is no abnormal signal in the cervical spinal cord and no evidence of foca l cord atrophy nor focal cord swelling. OSSEOUS:There are no cervical fractures evident. No significant osseous lesions in the cervical vert ebrae. INDIVIDUAL LEVELS: C2-3: No disc herniation nor central canal stenosis. No foraminal stenosis. No facet arthropathy. C3-4: No disc herniation nor central canal stenosis.No facet arthropathy. No foraminal stenosis. C4-5: No disc herniation nor central canal stenosis.No facet arthropathy. No foraminal stenosis C5-6: Normal disc height. However, there is a sys central-left paracentral disc protrusion evident a t this level which extends posteriorly 4 millimeters and is 7 millimeters wide. This indents the the ruy sac and contacts the anterior left side of the cervical cord at this level. No abnormal signal i n the cord at this level. Central canal dimensions are lower normal. There is no foraminal stenosis on either side at this level. No facet arthropathy. C6-7: Normal disc height and signal. No disc herniation or central canal stenosis. No foraminal stefanie nosis. No facet arthropathy. C7-T1: No disc herniation nor central canal stenosis. No facet arthropathy.No foraminal stenosis. IMPRESSION: 1. There is a disc herniation at C5-6 level as described above which is central-left paracentral, ext ending posteriorly 4 millimeters and approximately 7 millimeters wide. This indents the thecal sac a t this level. No abnormal signal at this level nor elsewhere in the cervical cord. Central canal di mensions are lower normal at this level and there is no foraminal stenosis on either side at this lev el nor elsewhere in the cervical spinal column. 2. There is no facet arthropathy in the cervical spine. 3. No abnormal signal in the cervical cord. No cord atrophy nor focal cord swelling. DATA REPOSITORY:
== END 2022-08-31 13:37 ==
LOC: DI 13:36
PROVIDERS: PCP Nurse Practitioner Family; Visit Provider Nurse Practitioner Family
DX: M50.222 Other cervical disc displacement at C5-C6 level (principal); R20.2 Paresthesia of skin
CPT/HCPCS: 72141

== ENCOUNTER 2022-08-31 13:41 | Outpatient (CLI) | payer OTHER, MEDICAID, SELFPAY ==
[2022-08-31 15:45] LABS: Abs Immature Grans 0.05 10^3/uL (0.0-0.06); Absolute Basophil Count 0.04 10^3/uL (0.0-0.2); Absolute Eosinophil Count 0.17 10^3/uL (0.0-0.7); Absolute Lymphocyte Count 1.98 10^3/uL (1.2-3.4); Absolute Monocyte Count 0.53 10^3/uL (0.1-0.8); Absolute Neutrophil Count 5.51 10^3/uL (1.2-6.7); Basophils % 0.5; Eosinophils % 2.1; HCT 42.7 % (36.0-46.0); HGB 14.5 g/dL (11.2-15.7); Immature Grans % 0.6; Lymphocytes % 23.9; MCH 30.1 pg (27.0-33.0); MCV 89 fL (80-95); MPV 11.3 fL (8.0-11.0); Monocytes % 6.4; Neutrophils % 66.5; Platelet Count 233 10^3/uL (130-400); RBC 4.82 10^6/uL (3.93-5.22); RDW 12.2 % (11.7-14.6); RDW-SD 39.8 fL; WBC 8.28 10^3/uL (4.4-10.8)
[2022-08-31 15:49] LABS: ESR 8 mm/hr (0-20)
[2022-08-31 16:24] LABS: PTT Activated 29.6 sec (21.0-27.5)
[2022-08-31 18:04] LABS: ALT 22 U/L (14-59); AST 19 U/L (15-37); Albumin 3.7 g/dL (3.4-5.0); Alkaline Phosphatase 91 U/L (46-116); Anion Gap 7.7 mmol/L (3-11); BUN 13 mg/dL (7-18); Bilirubin, Total 0.3 mg/dL (0.2-1.0); CO2 26.3 mmol/L (21.0-32.0); CREATININE 0.8 mg/dL (0.55-1.02); Chloride 103 mmol/L (98-107); Estimated GFR 96.66 (mL/min/1.73m2); Glucose 91 mg/dL (74-106); Sodium 137 mmol/L (136-145)
[2022-08-31 18:13] LABS: TSH 0.76 uIU/mL (0.36-3.74)
[2022-09-01 15:08] LABS: Protein S Ag, Free 117 % (50 - 160)
[2022-09-02 17:43] LABS: Phospholipid Ab, IgG <9.4 GPL; Phospholipid Ab, IgM 9.4 MPL
[2022-09-06 09:14] LABS: Prothrombin G20210A Mutation Negative (Negative)
[2022-09-07 09:07] LABS: Factor V Leiden(R506Q) Mut Negative (Negative)
[2022-09-08 12:14] LABS: Protein C Ag, P 111 % (72-160)
== END 2022-08-31 13:42 | disposition home or self-care (01) ==
LOC: LBO 13:41
PROVIDERS: Emergency Medicine; PCP Nurse Practitioner Family; Visit Provider Nurse Practitioner Family
DX: E03.9 Hypothyroidism, unspecified (principal); M79.605 Pain in left leg; I82.4Y2 Acute embolism and thrombosis of unspecified deep veins of left proximal lower extremity
CPT/HCPCS: 36415; 80053; 81240; 81241; 85302; 85305; 85652; 86147; 84443; 85025; 85730

== ENCOUNTER 2022-09-07 17:47 | Emergency (ER) | payer OTHER, MEDICAID, SELFPAY ==
[2022-09-07 18:01] VITALS: BP 151/94; PULSE 96; RESP 20; TEMP 36.4; O2SAT 99
--- NOTE | 2022-09-07 19:13 | W.ED.GENAD ---
Discharge Plan Disposition Patient Disposition: Home Condition: Stable Discharge Details Clinical Impression: DVT (deep venous thrombosis) Primary Care Provider: Zack Herrmann ED Provider: Rosa Curiel Home Meds and New Rx's Prescriptions: Continued dextroamphetamine-amphetamine [Adderall] 10 mg tablet 10 mg PO BID MDD 20mg Qty: 56 0RF Rx Instructions: administer doses at least 4-6 hours apart semaglutide 1 mg/dose (4 mg/3 mL) pen injector 1 mg subcut QWEEK Qty: 3 3RF Rx Instructions: for 4 doses Eliquis 5 mg tablet 5 mg PO BID 90 Days Qty: 180 1RF multivitamin [Daily Multi-Vitamin] tablet 1 tab PO DAILY magnesium oxide 400 mg magnesium tablet 400 mg PO DAILY Qty: 90 3RF sertraline 50 mg tablet 50 mg PO DAILY Qty: 90 3RF ParaGard T 380A 1 EACH intrauterine device 1 ea Intrauterine ONCE Qty: 1 0RF Discharge Instructions Additional Instructions: Continue on your Eliquis Call at 7 AM for your ultrasound tomorrow Please return immediately should you develop any chest pain or shortness of breath Referrals: Zack Herrmann, LIGHT RAIL TRAIN OPERATOR [Primary Care Provider] - Discharge Data Discharge Date/Time-TO BE ENTERED AT DEPARTURE: 09/07/22 19:32 Medical Decision Making This 37-year-old female who presents with increased swelling despite taking Eliquis for a diagnosed DVT in the left lower extremity last week, will need a repeat ultrasound Reviewed patient's prior ultrasound which shows nonocclusive thrombus in the left leg, appropriately prescribed Eliquis Will order outpatient ultrasound for tomorrow Patient will continue on her Eliquis Vitals are stable, no acute distress Return precautions reviewed and patient expressed understanding HPI General Date/Time Provider Initiated Documentation: 09/07/22 18:06. HPI Narrative: This 37-year-old female presents with worsening pain and swelling to left leg since starting on Eliquis last week. She denies any chest pain or shortness of breath. She denies any dizziness or weakness. She otherwise feels well. She is been taking her Eliquis as prescribed for patient. Denies chance of . Related Data Home Medications Medication Instructions Recorded Confirmed copper 380 square mm intrauterine 1 ea intrauterine ONCE #1 implant 01/11/18 09/07/22 device (ParaGard T 380A) multivitamin (Daily Multi-Vitamin 1 tab PO DAILY 01/26/19 09/07/22 tablet) magnesium oxide 400 mg PO DAILY #90 tabs 06/01/19 09/07/22 sertraline 50 mg tablet 50 mg PO DAILY #90 tabs 12/17/21 09/07/22 apixaban 5 mg tablet (Eliquis) 5 mg PO BID 90 days #180 tabs 08/30/22 09/07/22 dextroamphetamine-amphetamine 10 10 mg PO BID #56 tabs 08/30/22 09/07/22 mg tablet (Adderall) semaglutide 1 mg/dose (4 mg/3 mL) 1 mg (0.75 mL) subcut QWEEK #3 mL 08/30/22 09/07/22 subcutaneous pen injector Previous Rx's Medication Instructions Recorded copper 380 square mm intrauterine 1 ea intrauterine ONCE #1 implant 01/11/18 device (ParaGard T 380A) magnesium oxide 400 mg PO DAILY #90 tabs 06/01/19 sertraline 50 mg tablet 50 mg PO DAILY #90 tabs 12/17/21 apixaban 5 mg tablet (Eliquis) 5 mg PO BID 90 days #180 tabs 08/30/22 dextroamphetamine-amphetamine 10 10 mg PO BID #56 tabs 08/30/22 mg tablet (Adderall) semaglutide 1 mg/dose (4 mg/3 mL) 1 mg (0.75 mL) subcut QWEEK #3 mL 08/30/22 subcutaneous pen injector Allergies Allergy/AdvReac Type Severity Reaction Status Date / Time Penicillins Allergy Severe Verified 09/07/22 18:07 gluten Allergy Intermediate Hives, Verified 09/07/22 18:07 Bloated latex Allergy Intermediate SKIN RASH Verified 09/07/22 18:07 grass pollen Allergy Verified 09/07/22 18:07 mold Allergy Verified 09/07/22 18:07 prednisone AdvReac Intermediate palpitation Verified 09/07/22 18:07 s Sulfa (Sulfonamide AdvReac Intermediate SWOLLEN Verified 09/07/22 18:07 Antibiotics) JOINTS dairy Allergy Intermediate Hives, GI Uncoded 09/07/22 18:07 General Stated Complaint: GenMedical ARANZA: 4 PFSH All Active Problems (Updated 09/08/22 @ 14:13 by Cedric Cunningham MD) DVT (deep venous thrombosis) (Chronic) Left thigh pain (Acute) Deep vein thrombosis of proximal end of left lower extremity (Acute) Otitis externa of right ear (Acute) Popliteal pain (Acute) left leg, with some mild bulging. Started and 4-5 days ago. Paresthesia (Acute) Bilateral arms and hands, numbness and tingling IUD surveillance (Acute) Migraine (Chronic) Low back pain (Acute) Sesamoiditis (Chronic) Right great toe fibular sesamoid. Breast pain, left (Acute) GERD (gastroesophageal reflux disease) (Chronic) Allergic rhinitis (Acute) TMJ (temporomandibular joint disorder) (Acute) Depression (Chronic) ADD (attention deficit disorder) (Acute) Insomnia (Acute) Sacroiliac joint dysfunction of both sides (Acute) Obesity (BMI 35.0-39.9 without comorbidity) (Acute) Medical History Anxiety Social History Smoking/Tobacco Use Status: Former Tobacco Use Smoking risk assessment performed?: Yes Alcohol Intake: current Alcohol Intake frequency: a few times a month Drug use: Never Substance use type: does not use Caregiver/Support person: No Household members: spouse and children Housing: house Number of Children: 1 Communication Needs: None Do you need help understanding health information?: Never Pets and animals: Yes Pets and animals: cat(s) and dog(s) Sexually active: Yes Do you think of yourself as: straight/heterosexual Current gender identity: female What is your relationship status?: living with partner How often do you talk on the phone with friends or family?: twice per week How often do you get together with friends or relatives?: never Do you belong to any clubs or organized social groups?: no Panel score (0-1 are the most socially isolated patients): 1 What type of physical activity do you participate in: none Seatbelt use: always Helmet use: Yes Helmet use: always Do you feel safe at home: Yes Do you feel safe in your relationship?: Yes History History 2 Para 1 Hx # Term Pregnancies Multiple births Hx # Pregnancies Ectopic pregnancies AB induced Hx Number of Living Children AB spontaneous Exam Narrative Exam Narrative: Left lower extremity with mild swelling and tenderness, report of increased swelling to left thigh, no significant edema noted, neurovascularly intact, normal respiratory rate, normal heart rate, no skin discoloration Course Vital Signs Vital signs: Vital Signs Temperature 36.4 C L 09/07/22 18:01 Pulse 96 H 09/07/22 18:01 Respiratory Rate 20 09/07/22 18:01 Blood Pressure 151/94 H 09/07/22 18:01 Pulse Oximetry 99 09/07/22 18:01 Temperature 36.4 C L 09/07/22 18:01 Pulse 96 H 09/07/22 18:01 Respiratory Rate 20 09/07/22 18:01 Blood Pressure 151/94 H 09/07/22 18:01 Blood Pressure Position Sitting 09/07/22 18:01 Pulse Oximetry 99 09/07/22 18:01 Oxygen Delivery Method Room Air 09/07/22 18:01 Oxygen Flow Rate 0 09/07/22 18:01 Pain Level 1 09/07/22 18:01
--- NOTE | 2022-09-07 19:34 | NUR.NOTE ---
Requisition faxed to [facility] for ultrasound for lower extremity swelling. Nursing Note:
== END 2022-09-07 19:32 | disposition home or self-care (01) ==
PROVIDERS: Emergency Provider Physician Assistant; PCP Nurse Practitioner Family
DX: I82.492 Acute embolism and thrombosis of other specified deep vein of left lower extremity (principal)
CPT/HCPCS: 99281; 99284

== ENCOUNTER 2022-09-08 13:50 | Emergency (ER) | payer OTHER, MEDICAID, SELFPAY ==
[2022-09-08 13:52] VITALS: BP 140/76; PULSE 89; RESP 18; TEMP 36.9; O2SAT 98
--- NOTE | 2022-09-08 14:11 | ED.GENADUL_ITS ---
Discharge Plan Disposition Patient Disposition: Home Condition: Stable Discharge Details Clinical Impression: Left thigh pain Primary Care Provider: Zack Herrmann ED Provider: Cedric Cunningham Home Meds and New Rx's Prescriptions: Continued dextroamphetamine-amphetamine [Adderall] 10 mg tablet 10 mg PO BID MDD 20mg Qty: 56 0RF Rx Instructions: administer doses at least 4-6 hours apart semaglutide 1 mg/dose (4 mg/3 mL) pen injector 1 mg subcut QWEEK Qty: 3 3RF Rx Instructions: for 4 doses Eliquis 5 mg tablet 5 mg PO BID 90 Days Qty: 180 1RF multivitamin [Daily Multi-Vitamin] tablet 1 tab PO DAILY magnesium oxide 400 mg magnesium tablet 400 mg PO DAILY Qty: 90 3RF sertraline 50 mg tablet 50 mg PO DAILY Qty: 90 3RF ParaGard T 380A 1 EACH intrauterine device 1 ea Intrauterine ONCE Qty: 1 0RF Discharge Instructions Additional Instructions: Your ultrasound did not show any change in the thrombus/clot Follow up with your primary care provider within 1-2 weeks if you feel more ill, have difficulty breathing or chest pain return to the emergency department Medical Decision Making 37 yo female who was diagnosed with thrombus of distal popliteal and proximal posterior tibial vein earlier this month and is on eliquis comes in after having an u/s. She was seen yesterday for several days of left posterior inferior thigh pain and was concerned her dvt was worsening. She was seen and no u/s available at night so came back today for an u/s. Her symptoms have improved slightly. She arrives stable speaking clearly in no distress. She has tenderness of the inferior thigh, no erythema, no warmth, full rom of the leg, intact sensation and cap refill. Her u/s shows stable appearance of the thombus. Discussed results with pt, given reassuring exam and no findings to suggest infectious etiology and no trauma to suggest fracture/dislocation do not feel further imaging or labs indicated. She is stable for d/c, micaela f/u with her pcp and return precautions given Differential Diagnosis Differential Diagnosis: dvt, strain, spasm Imaging Data Radiologic Study: Attestation: I personally reviewed and interpreted this imaging study as follows: Imaging: Ultrasound Radiologist's impression: Exam(s) US LOWER EXTREMITY VENOUS LT EXAM:? US LOWER EXTREMITY VENOUS LT CLINICAL HISTORY: ? LT LEG PAIN AND SWELLING, ? DVT.? TECHNIQUE: ? Lower extremity venous ultrasound performed using grayscale, color- flow, and spectral Doppler analysis. COMPARISON:? No exams were available for comparison FINDINGS: The common femoral, and femoral veins demonstrate normal compressibility, augm entation, and color Doppler.There is nonocclusive thrombus again visible in the distal popliteal vein and posterior tibial vein, with a similar appearance to the prior study no saphenous vein thrombosis or other superficial venous thrombosis is seen.? No hematoma or Mix's cyst is seen. IMPRESSION: Stable appearance of nonocclusive thrombus in the posterior tibial vein and distal popliteal vein.? HPI General Mode of arrival: ambulatory . Date/Time Provider Initiated Documentation: 09/08/22 13:51 . Limitations to Documentation: no limitations . Information obtained by: patient . History of Present Illness 37 year old F presents to the emergency department with the chief complaint of left thigh pain, described as moderate, Quality is described as aching, Patient started experiencing this day(s) (3) and it has been constant. No relieving factors improve symptom(s), No exacerbating factors reported . Patient notes no other symptoms.. Patient did receive the following treatments prior to arrival, none Related Data Home Medications Medication Instructions Recorded Confirmed copper 380 square mm intrauterine 1 ea intrauterine ONCE #1 implant 01/11/18 09/07/22 device (ParaGard T 380A) multivitamin (Daily Multi-Vitamin 1 tab PO DAILY 01/26/19 09/07/22 tablet) magnesium oxide 400 mg PO DAILY #90 tabs 06/01/19 09/07/22 sertraline 50 mg tablet 50 mg PO DAILY #90 tabs 12/17/21 09/07/22 apixaban 5 mg tablet (Eliquis) 5 mg PO BID 90 days #180 tabs 08/30/22 09/07/22 dextroamphetamine-amphetamine 10 10 mg PO BID #56 tabs 08/30/22 09/07/22 mg tablet (Adderall) semaglutide 1 mg/dose (4 mg/3 mL) 1 mg (0.75 mL) subcut QWEEK #3 mL 08/30/22 09/07/22 subcutaneous pen injector Previous Rx's Medication Instructions Recorded copper 380 square mm intrauterine 1 ea intrauterine ONCE #1 implant 01/11/18 device (ParaGard T 380A) magnesium oxide 400 mg PO DAILY #90 tabs 06/01/19 sertraline 50 mg tablet 50 mg PO DAILY #90 tabs 12/17/21 apixaban 5 mg tablet (Eliquis) 5 mg PO BID 90 days #180 tabs 08/30/22 dextroamphetamine-amphetamine 10 10 mg PO BID #56 tabs 08/30/22 mg tablet (Adderall) semaglutide 1 mg/dose (4 mg/3 mL) 1 mg (0.75 mL) subcut QWEEK #3 mL 08/30/22 subcutaneous pen injector Allergies Allergy/AdvReac Type Severity Reaction Status Date / Time Penicillins Allergy Severe Verified 09/07/22 18:07 gluten Allergy Intermediate Hives, Verified 09/07/22 18:07 Bloated latex Allergy Intermediate SKIN RASH Verified 09/07/22 18:07 grass pollen Allergy Verified 09/07/22 18:07 mold Allergy Verified 09/07/22 18:07 prednisone AdvReac Intermediate palpitation Verified 09/07/22 18:07 s Sulfa (Sulfonamide AdvReac Intermediate SWOLLEN Verified 09/07/22 18:07 Antibiotics) JOINTS dairy Allergy Intermediate Hives, GI Uncoded 09/07/22 18:07 General Stated Complaint: GenMedical ARANZA: 4 Review of Systems All systems reviewed & are unremarkable except as noted in HPI and below Constitutional Constitutional: Denies chills, Denies fever(s) and Denies weakness Cardiovascular Cardiovascular: Denies chest pain and Denies dyspnea Respiratory Respiratory: Denies cough and Denies dyspnea Gastrointestinal Gastrointestinal: Denies abdominal pain, Denies nausea and Denies vomiting Musculoskeletal Musculoskeletal: Denies joint swelling Integumentary/Breasts Skin/Breast: Denies rash Neurologic Neurologic: Denies weakness Allergic/Immunologic Allergic/Immunologic: Denies urticaria PFSH All Active Problems (Updated 09/08/22 @ 14:13 by Cedric Cunningham MD) DVT (deep venous thrombosis) (Chronic) Left thigh pain (Acute) Deep vein thrombosis of proximal end of left lower extremity (Acute) Otitis externa of right ear (Acute) Popliteal pain (Acute) left leg, with some mild bulging. Started and 4-5 days ago. Paresthesia (Acute) Bilateral arms and hands, numbness and tingling IUD surveillance (Acute) Migraine (Chronic) Low back pain (Acute) Sesamoiditis (Chronic) Right great toe fibular sesamoid. Breast pain, left (Acute) GERD (gastroesophageal reflux disease) (Chronic) Allergic rhinitis (Acute) TMJ (temporomandibular joint disorder) (Acute) Depression (Chronic) ADD (attention deficit disorder) (Acute) Insomnia (Acute) Sacroiliac joint dysfunction of both sides (Acute) Obesity (BMI 35.0-39.9 without comorbidity) (Acute) Medical History Anxiety Social History Smoking/Tobacco Use Status: Former Tobacco Use Smoking risk assessment performed?: Yes Alcohol Intake: current Alcohol Intake frequency: a few times a month Drug use: Never Substance use type: does not use Caregiver/Support person: No Household members: spouse and children Housing: house Number of Children: 1 Communication Needs: None Do you need help understanding health information?: Never Pets and animals: Yes Pets and animals: cat(s) and dog(s) Sexually active: Yes Do you think of yourself as: straight/heterosexual Current gender identity: female What is your relationship status?: living with partner How often do you talk on the phone with friends or family?: twice per week How often do you get together with friends or relatives?: never Do you belong to any clubs or organized social groups?: no Panel score (0-1 are the most socially isolated patients): 1 What type of physical activity do you participate in: none Seatbelt use: always Helmet use: Yes Helmet use: always Do you feel safe at home: Yes Do you feel safe in your relationship?: Yes History History 2 Para 1 Hx # Term Pregnancies Multiple births Hx # Pregnancies Ectopic pregnancies AB induced Hx Number of Living Children AB spontaneous Exam Const General: no acute distress Orientation: alert HENMT Head: normal to inspection Ears: external ears normal General nose exam: external nose normal Mouth: moist mucous membranes Eyes General: appearance normal, both eyes and all related structures Neck Neck: normal visual inspection Resp Effort & Inspection: normal respiratory effort and able to speak in complete sentences Cardio Rate: regular rate Skin General skin exam: no rashes or lesions noted Neuro General: patient alert and patient oriented x3 Extrem General: full ROM and capillary refill normal Psych Mental Status: mental status grossly normal Course Vital Signs Vital signs: Vital Signs Temperature 36.9 C 09/08/22 13:52 Pulse 89 09/08/22 13:52 Respiratory Rate 18 09/08/22 13:52 Blood Pressure 140/76 09/08/22 13:52 Pulse Oximetry 98 09/08/22 13:52 Temperature 36.9 C 09/08/22 13:52 Temperature Source Tympanic 09/08/22 13:52 Pulse 89 09/08/22 13:52 Respiratory Rate 18 09/08/22 13:52 Respiratory Effort 09/08/22 13:55 Blood Pressure 140/76 09/08/22 13:52 Blood Pressure Position Supine 09/08/22 13:52 Pulse Oximetry 98 09/08/22 13:52 Oxygen Delivery Method Room Air 09/08/22 13:52 Oxygen Flow Rate 0 09/08/22 13:52 Pain Level 1 09/08/22 13:52
== END 2022-09-08 14:23 | disposition home or self-care (01) ==
PROVIDERS: Emergency Provider Emergency Medicine; PCP Nurse Practitioner Family
DX: M79.652 Pain in left thigh (principal)

== ENCOUNTER 2022-10-12 12:36 | Outpatient (REF) | payer OTHER, MEDICAID, SELFPAY ==
[2022-10-12 11:31] LABS: Source Nasal/Nares
[2022-10-12 12:09] LABS: COVID-19 PCR Negative (Negative)
== END 2022-10-12 12:37 | disposition home or self-care (01) ==
LOC: LBN 12:36
PROVIDERS: PCP Nurse Practitioner Family; Visit Provider Obstetrics & Gynecology
DX: Z20.822 Contact with and (suspected) exposure to COVID-19 (principal)
CPT/HCPCS: 87635

== ENCOUNTER 2022-12-16 11:07 | Outpatient (CLI) | payer OTHER, MEDICAID, SELFPAY ==
[2022-12-16 11:13] VITALS: BP 130/88; PULSE 90; RESP 20; TEMP 36.7; O2SAT 97
--- NOTE | 2022-12-16 11:44 | DI.RAD_ITS ---
Exam(s) XR PAIN CLINIC SACRIOILIAC 2V EXAM: XR PAIN CLINIC SACRIOILIAC 2V CLINICAL HISTORY: DX: Bilateral Sacroiliac dysfunction TECHNIQUE: 2D and realtime digital imaging was performed. CONTRAST MATERIAL: Refer to procedure report. COMPARISON: No exams were available for comparison FINDINGS: Fluoroscopy was provided for Dr. Banda during the performance of a bilateral sacroiliac joint injecti on. Please refer to the procedure report for complete details. Ka,r=13.3 mGy IMPRESSION:
--- NOTE | 2022-12-16 11:46 | PDOC.PAIN_ITS ---
Date of service: 12/16/22 Time of Service: 11:52 Pain Managment Procedure Note Procedure Note Procedure Note: INTRA-ARTICULAR SI JOINT INJECTION Ladonna Lyons has been referred to the Pain Management Center for intra- articular SI joint injection. COMMENTS: She last had bilateral sacroiliac joint injections on 06/09/22 and had >3 months of >50% improvement in her pain. Dx: Sacroiliac joint dysfunction Pre-procedure pain VAS was 5/10 Patient was interviewed and the medical record reviewed. There were no medical, pharmacologic, radiographic or other structural contraindications to attempting fluoroscopically guided intra-articular SI joint injection. Risks and expected side effects as well as potential benefit of the procedure were reviewed and voiced concerns addressed. The printed consent form was signed and witnessed. Standard time-out procedure was performed. Patient was placed in the prone position on the fluoroscopy table and automated blood pressure cuff and pulse oximeter applied. The skin entry point for approaching the bilateral SI joints was identified under the most advantageous fluoroscopic view and marked. Following thorough Chlorhexadine preparation of the skin and draping and 1% lidocaine infiltration of the skin entry point and subcutaneous tissues, a 22 gauge spinal needle was placed under fluoroscopic guidance into the bilateral SI joints was identified under the most advantageous fluoroscopic view and marked. Intra-articular placement was confirmed by a clear arthrogram resulting from the injection of 0.25ml Omnipaque 240, At this point I injected 40mg Depomedrol followed by 1 cc of 1% Lidocaine were injected intra-articularily with an initial reproduction of a significant component of the usual pain. Vital signs were stable throughout the procedure and were as recorded in the docflowsheet by the nursing staff. If given, dosages of intravenous drugs for anxiolysis and analgesia were documented in MAR. Follow up plans and appointments were discussed with the patient. Post procedure instruction was given as documented in nursing documentation and having met discharge criteria, and was discharged from the Pain Management Center. COMMENTS: Post-procedure pain VAS was 0/10. If this procedure is helpful (at least 3 months of at least 50% pain and/or function improvement), it can be repeated. This procedure can be completed up to 4 times per 12 months. Ari Banda DO, MPH ABPMR-Pain Management [facility] CC: Darlene Fairbanks NP
[2022-12-16] MEDS: Omnipaque 240 MG/ML 50 ML BTL IJ (11:52)
[2022-12-16] MEDS: methylPREDNISolone ACETATE 80 MG/ML VIAL IJ (11:53)
[2022-12-16 12:02] VITALS: BP 134/78; PULSE 81; RESP 13; O2SAT 100
== END 2022-12-16 11:08 | disposition home or self-care (01) ==
LOC: PC 11:07
PROVIDERS: PCP Nurse Practitioner Family; Visit Provider Preventive Medicine Occupational Medicine
DX: M46.1 Sacroiliitis, not elsewhere classified (principal)
CPT/HCPCS: 27096; 72200; J1040; Q9967

== ENCOUNTER 2023-09-14 08:43 | Outpatient (CLI) | payer OTHER, MEDICAID, SELFPAY ==
[2023-09-14 08:50] VITALS: BP 124/82; PULSE 71; RESP 18; TEMP 37.3; O2SAT 98
--- NOTE | 2023-09-14 09:19 | PDOC.PAIN_ITS ---
Date of service: 09/14/23 Time of Service: 09:19 Pain Managment Procedure Note Procedure Note Procedure Note: PROCEDURE NOTE BILATERAL INTRA-ARTICULAR SACROILIAC JOINT INJECTION Date of Service: September 14, 2023 Patient: Ladonna Lyons Provider: Ari Banda DO, MPH COMMENTS: I previously evaluated the patient in the office and their symptoms in relation to the sacroiliac joint pain have remained the same. She last had this procedure on 12/16/22 with >6 months of >50% pain relief. Pre-operative diagnosis: Sacroiliac joint dysfunction Post-operative diagnosis: Same Pre-procedure pain: VAS= 6/10 Ladonna Lyons has been referred to our [facility] for a Bilateral intra-articular Sacroiliac joint injection. Ladonna was interviewed and the medical record reviewed. There were no medical, pharmacologic, radiographic or other structural contraindications to attempting a fluoroscopically-guided, contrast-enhanced, intra-articular Sacroiliac joint injection. The risks, benefits, and potential side effects of this procedure were reviewed with the patient. Questions and concerns were addressed. After it was clear that Ladonna was fully informed about the procedure, the printed consent form was signed by the patient and myself. Ladonna was placed in the prone position on the fluoroscopy table and an automated blood pressure cuff, 3 lead EKG, and pulse oximeter were applied. The skin entry point for approaching the Left sacroiliac joint was identified under the most advantageous fluoroscopic view and marked. Following thorough Chlorhexadine preparation of the skin and draping with sterile surgical drapes, 2 mls of 1% lidocaine was infiltrated into the skin at the entry point and the surrounding subcutaneous tissues. Next, a 3.5 22G spinal needle was placed under fluoroscopic guidance into the Left sacroiliac joint. Intra-articular placement was confirmed by a clear arthrogram resulting from the injection of 0.25ml of Omnipaque-240. Next, 1 ml of Depo- Medrol 40 mg/ml was injected intra- articularly with an initial reproduction of a significant component of the usual pain. This was followed with 1 ml of 1% Lidocaine. The needle was then removed without difficulty. (49 ml of Omnipaque-240 was wasted). The exact procedure was completed on the opposite sacroiliac joint. Ladonna's vital signs were stable throughout the procedure and were as recorded in nursing records. Follow up plans and appointments were discussed with Ladonna. Post procedure instructions were given as documented in nursing records. Having met discharge criteria, Ladonna was discharged from the [facility]. COMMENTS: Post-procedure pain: VAS= 2/10. If the patient receives at least 50% improvement in pain and/or function for at least 3 months, this procedure can be repeated if needed. She continued to have low back pain slightly above the areas I injected today. She continued to have a positive Domingo's test bilaterally. She will keep an eye on this new pain. We may completed LMBBs to the bilateral L3-L5 +/- RFA in the future. She is aware. I personally performed this entire procedure. ARI BANDA DO, MPH ABPMR-subspecialty board certification in Pain Medicine [facility] [facility]
--- NOTE | 2023-09-14 09:19 | DI.RAD_ITS ---
Exam(s) XR PAIN CLINIC SACRIOILIAC 2V EXAM: XR PAIN CLINIC SACRIOILIAC 2V CLINICAL HISTORY: Dx: Sacroiliac Joint Dysfunction TECHNIQUE: 2D and realtime digital imaging was performed. CONTRAST MATERIAL: Refer to procedure report. COMPARISON: No exams were available for comparison FINDINGS: Fluoroscopy was provided for Dr. Banda during the performance of a bilateral sacroiliac joint injecti ons. Please refer to the procedure report for complete details. Ka,r=12.1 mGy IMPRESSION:
[2023-09-14 09:22] VITALS: BP 137/84; PULSE 68; RESP 18; O2SAT 98
[2023-09-14] MEDS: methylPREDNISolone ACETATE 40 MG/ML VIAL IJ (09:24)
[2023-09-14] MEDS: Nerve Block Tray 1 EACH MC (09:24)
[2023-09-14] MEDS: Omnipaque 240 MG/ML 50 ML BTL IJ (09:24)
== END 2023-09-14 08:44 | disposition home or self-care (01) ==
LOC: PC 08:44
PROVIDERS: PCP Nurse Practitioner Family; Visit Provider Preventive Medicine Occupational Medicine
DX: M46.1 Sacroiliitis, not elsewhere classified (principal)
CPT/HCPCS: 00123; 27096; 72200; J1030; Q9967

== ENCOUNTER 2024-02-15 07:44 | Outpatient (CLI) | payer OTHER, MEDICAID, SELFPAY ==
[2024-02-15 07:55] VITALS: BP 149/95; PULSE 87; RESP 20; TEMP 36.7; O2SAT 97
--- NOTE | 2024-02-15 08:25 | DI.RAD_ITS ---
Exam(s) XR PAIN CLINIC SACRIOILIAC 2V EXAM: XR PAIN CLINIC SACRIOILIAC 2V CLINICAL HISTORY: Dx: Sacroiliac Joint Dysfunction TECHNIQUE: 2D and realtime digital imaging was performed. Radiologist not present. CONTRAST MATERIAL: None. COMPARISON: No exams were available for comparison FINDINGS: Fluoroscopy was provided for pain management therapy. SI joint injections Please refer to procedure report or details. Radiation Exposure Index: Ka,r=16.58 mGy IMPRESSION: As above. RADIATION DOSE DELIVERED:
[2024-02-15 08:27] VITALS: BP 140/98; PULSE 79; RESP 21; O2SAT 98
[2024-02-15] MEDS: Nerve Block Tray 1 EACH MC (08:28)
[2024-02-15] MEDS: Omnipaque 240 MG/ML 50 ML BTL IJ (08:28)
[2024-02-15] MEDS: methylPREDNISolone ACETATE 80 MG/ML VIAL IJ (08:28)
--- NOTE | 2024-02-15 10:49 | PDOC.PAIN_ITS ---
Date of service: 02/15/24 Time of Service: 08:30 Pain Managment Procedure Note Procedure Note Procedure Note: PROCEDURE NOTE BILATERAL INTRA-ARTICULAR SACROILIAC JOINT INJECTION Date of Service: February 15, 2024 Patient: Ladonna Lyons Provider: Ari Banda DO, MPH COMMENTS: I previously evaluated the patient in the office and their symptoms in relation to the sacroiliac joint pain have remained the same. Her last bilateral sacroiliac joint injection was on 09/14/23 and she had >50% pain relief for >3 months. The pain has mostly returned. Pre-operative diagnosis: Sacroiliac joint dysfunction Post-operative diagnosis: Same Pre-procedure pain: VAS= 5/10 Ladonna Lyons has been referred to our [facility] for a Bilateral intra-articular Sacroiliac joint injection. Ladonna was interviewed and the medical record reviewed. There were no medical, pharmacologic, radiographic or other structural contraindications to attempting a fluoroscopically-guided, contrast-enhanced, intra-articular Sacroiliac joint injection. The risks, benefits, and potential side effects of this procedure were reviewed with the patient. Questions and concerns were addressed. After it was clear that Ladonna was fully informed about the procedure, the printed consent form was signed by the patient and myself. Ladonna was placed in the prone position on the fluoroscopy table and an automated blood pressure cuff, 3 lead EKG, and pulse oximeter were applied. The skin entry point for approaching the Left sacroiliac joint was identified under the most advantageous fluoroscopic view and marked. Following thorough Chlorhexadine preparation of the skin and draping with sterile surgical drapes, 2 mls of 1% lidocaine was infiltrated into the skin at the entry point and the surrounding subcutaneous tissues. Next, a 3.5 22G spinal needle was placed under fluoroscopic guidance into the Left sacroiliac joint. Intra-articular placement was confirmed by a clear arthrogram resulting from the injection of 0.25ml of Omnipaque-240. Next, 1 ml of Depo- Medrol 40 mg/ml was injected intra- articularly with an initial reproduction of a significant component of the usual pain. This was followed with 1 ml of 1% Lidocaine. The needle was then removed without difficulty. (49 ml of Omnipaque-240 was wasted). The exact procedure was completed on the opposite sacroiliac joint. Ladonna's vital signs were stable throughout the procedure and were as recorded in nursing records. Follow up plans and appointments were discussed with Ladonna. Post procedure instructions were given as documented in nursing records. Having met discharge criteria, Ladonna was discharged from the [facility]. COMMENTS: Post-procedure pain: VAS= 3/10. If the patient receives at least 50% improvement in pain and/or function for at least 3 months, this procedure can be repeated if needed. I personally performed this entire procedure. ARI BANDA DO, MPH ABPMR-subspecialty board certification in Pain Medicine [facility] [facility]
== END 2024-02-15 07:45 | disposition home or self-care (01) ==
LOC: PC 07:44
PROVIDERS: PCP Nurse Practitioner Family; Visit Provider Preventive Medicine Occupational Medicine
DX: M53.3 Sacrococcygeal disorders, not elsewhere classified (principal)
CPT/HCPCS: 27096; 72200; J1010; Q9967

== ENCOUNTER → 2024-03-20 00:43 | Outpatient (CLI) | payer OTHER, MEDICAID, SELFPAY ==
--- NOTE | 2024-03-20 08:45 | DI.RAD_ITS ---
Exam(s) XR CHEST 2V PA LATERAL EXAM: XR CHEST 2V PA LATERAL CLINICAL HISTORY: chemical exposure,asthma,[id number]. TECHNIQUE: 2D digital imaging was performed. COMPARISON: CR XR PORTABLE CHEST AP from 06/21/2022 FINDINGS: 2 views: Heart size is normal. The mediastinum is not widened. Lungs are clear. No infiltrates nor pleural effusions. IMPRESSION: No acute pulmonary findings. DATA REPOSITORY: RADIATION DOSE DELIVERED:
== END ==
PROVIDERS: PCP Nurse Practitioner Family; Visit Provider Physician Assistant Surgical
DX: J45.909 Unspecified asthma, uncomplicated (principal)
CPT/HCPCS: 71046

== ENCOUNTER 2024-05-07 03:44 | Outpatient (CLI) | payer OTHER, MEDICAID, SELFPAY ==
[2024-05-07] MEDS: Methacholine 100 MG VIAL IH (14:58)
[2024-05-07] MEDS: Inhaler, Assist Device 1 EACH MC (14:58)
[2024-05-07] MEDS: Albuterol HFA 18 GM 200 PUFF INH IH (14:58)
--- NOTE | 2024-05-07 15:14 | W.PFT ---
Date of service: 05/07/24 Time of Service: 13:05 Pulmonary Function Test Result Requesting Provider JEREMY Brandon Indications: Cough, dyspnea, seasonal allergies, light smoker quit 15 years ago. Test done on Airsupra and fluticasone, albuterol held before test. Interpretation Spirometry: Spirometry pre and postbronchodilator showed: 1. Baseline spirometry was normal. The FVC was 102% predicted, FEV1 was 90% predicted, FEV1/FVC was 72%. 2. Methacholine challenge testing was markedly positive at 1 mg per mL methacholine. There was a 24% decrease in FEV1 and a 28% decrease in forced vital capacity. 3. Postbronchodilator spirometry after methacholine showed recovery to normal airflow. Lung Volumes: Lung volumes by plethysmography showed no evidence of restriction and moderate hyperinflation. This could be consistent with air trapping due to mucous plugging in asthma. Diffusion Capacity: Diffusing capacity by single breath carbon monoxide technique was normal. No gas exchange abnormality Impression This test was diagnostic for reactive airways disease (asthma). Lung volumes showed moderate hyperinflation, also consistent with suboptimal control of asthma. Gas exchange was normal. Note: Consider adjusting inhaled corticosteroid dose (and/or address suboptimal compliance with ICS) with follow-up spirometry and lung volumes in 1 to 2 months to determine clinical response.
== END 2024-05-07 03:45 | disposition home or self-care (01) ==
LOC: RT 03:45
PROVIDERS: PCP Nurse Practitioner Family; Visit Provider Physician Assistant Surgical
DX: J45.909 Unspecified asthma, uncomplicated (principal); R05.9 Cough, unspecified; Z87.891 Personal history of nicotine dependence
CPT/HCPCS: 00123; 94060; 94070; 94726; 94729; 94010; J7674

== ENCOUNTER 2024-05-09 13:53 | Outpatient (REF) | payer OTHER, MEDICAID, SELFPAY ==
[2024-05-09 12:35] LABS: Abs Immature Grans 0.04 10^3/uL (0.0-0.06); Absolute Basophil Count 0.06 10^3/uL (0.0-0.2); Absolute Eosinophil Count 0.08 10^3/uL (0.0-0.7); Absolute Monocyte Count 0.41 10^3/uL (0.1-0.8); Basophils % 0.8 %; Eosinophils % 1.1 %; HGB 14.9 g/dL (11.2-15.7); Immature Grans % 0.5 %; MCHC 33.1 % (32.0-36.0); MCV 91 fL (80-95); MPV 11.6 fL (8.0-11.0); Monocytes % 5.5 %; Neutrophils % 68.1 %; Platelet Count 247 10^3/uL (130-400); RBC 4.96 10^6/uL (3.93-5.22); RDW 12.5 % (11.7-14.6); RDW-SD 41.1 fL; WBC 7.49 10^3/uL (4.4-10.8)
[2024-05-09 22:52] LABS: IgE 32 IU/mL (<158)
== END 2024-05-09 13:54 | disposition home or self-care (01) ==
LOC: LBN 13:53
PROVIDERS: PCP Nurse Practitioner Family; Visit Provider Physician Assistant Surgical
DX: J45.909 Unspecified asthma, uncomplicated (principal); J30.9 Allergic rhinitis, unspecified
CPT/HCPCS: 82785; 85025

== ENCOUNTER 2024-07-31 01:35 | Outpatient (CLI) | payer OTHER, MEDICAID, SELFPAY ==
--- NOTE | 2024-07-31 06:45 | DI.MRI_ITS ---
Exam(s) MR LUMBAR SPINE WO EXAM: MR LUMBAR SPINE WO CLINICAL HISTORY: Worsening low back pain with radiation to the legs,m54.5. TECHNIQUE: Multiplanar multisequence MRI of the Lumbar spine was performed. COMPARISON: CT ABD PELVIS WITH CONTRAST from 01/15/2009 FINDINGS: Bones: The last intervertebral disc space is designated the L5/S1 level for the numbering purpose of this examination. The vertebral body heights are well maintained. Alignment is satisfactory. Degene rative endplate signal changes are seen at L5-S1. Cord: The conus tip ends at the T12 level. It is of normal size and signal intensity. T12-L1: No disc herniations or bulges are present. No central spinal canal or neural foraminal stenos is. L1-2: No disc herniations or bulges are present. No central spinal canal or neural foraminal stenosis . L2-3: No disc herniations or bulges are present. No central spinal canal or neural foraminal stenosis . L3-4: There is a mild diffuse disc bulge. No central spinal canal or neural foraminal stenosis. L4-5: There is a small central disc bulge. There is mild disc desiccation. No central spinal canal or neural foraminal stenosis. L5-S1: There is a small central annular tear. No significant central spinal canal stenosis or nerve root compression results. There is disc desiccation at this level. No central spinal canal or neura l foraminal stenosis. Soft tissues: The visualized SI joints and sacrum are well maintained. The paraspinal soft tissues ar e unremarkable. IMPRESSION: No central spinal canal or neural foraminal stenosis is seen in the lumbar spine. DATA REPOSITORY:
== END 2024-07-31 01:55 ==
LOC: DI 01:35
PROVIDERS: PCP Nurse Practitioner Family; Visit Provider Preventive Medicine Occupational Medicine
DX: M54.59 Other low back pain (principal)
CPT/HCPCS: 72148

== ENCOUNTER 2025-02-25 09:47 | Outpatient (REF) | payer OTHER, MEDICAID, SELFPAY | END 2025-02-25 09:48 | disposition home or self-care (01) | LOC: LBN 09:47 | PROVIDERS: PCP Nurse Practitioner Family; Visit Provider Advanced Practice Midwife | DX: R30.0 Dysuria (principal); R82.89 Other abnormal findings on cytological and histological examination of urine | CPT/HCPCS: 87086 ==